=== PATIENT | male | born 1970 | race Two or more races ===

== ENCOUNTER 2023-08-15 18:16 | Inpatient (IN) | payer OTHER, SELFPAY ==
[2023-08-15 20:00] VITALS: BP 152/86; PULSE 73; TEMP 36.7; O2SAT 98
[2023-08-15] MEDS: Tamsulosin HCL 0.4 MG CAPSULE PO (20:49)
[2023-08-15] MEDS: traZODone HCL 50 MG TABLET PO (20:50)
--- NOTE | 2023-08-15 22:59 | PC.ADMIT ---
Addendum entered by Elle Coello RN 08/15/23 23:23: pt is belarusian speaking only, supervisor garage was used. Original Note: pt is 53 year old male who came to [facility] ED with SI with plan to slit wrist and shoot self in the head. pt has a past medical history of BPH, inaptient admissions, depression, back pain, fractured spine, and asthma. during admission, pt signed CV, legals and a 3 day. pt reported he has less SI and is concerned about lsoing his job while he is in here. pt reports that he hears voices at night and sees shadows. pt reports after his father he became depressed. pt reports his mother is dying and he is depressed about this. start treatment plan and promote safety.
--- NOTE | 2023-08-15 23:06 | PC.NURSE ---
pt signed a 3 day 08/15/2023. 08/19/23 is when the 3 day is up.
[2023-08-16] MEDS: Acetaminophen 325 MG TABLET 650 MG PO (04:18)
[2023-08-16] MEDS: Omeprazole 20 MG CAPSULE.DR PO (06:03)
[2023-08-16 07:54] LABS: Estimated Average Glucose 114 mg/dL; Hemoglobin A1c % 5.6 % (<6.0)
--- NOTE | 2023-08-16 08:20 | P.HPPS_ITS ---
HPI Date of Service: 08/16/23 Chief Complaint: Major Depressive Disorder with psychotic features Sources of Information: patient interviewed, chart reviewed and crisis/core team assessment reviewed HPI Subjective Notes: Murray Warning (given and shows understanding) and Conditional Voluntary Narrative: Mr. Márquez is a 53 year-old male with hx of MDD who self presented to [facility] ED reporting increased depression in past 2 weeks. 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 He also reports chronic migraines for past 2 years after TBI. He reported black shadows and mumbles. In the ED utox is negative. BAL is negative. On the unit, pt reports feeling increasingly more depressed, hopeless and overwhelmed. He reports has cancer and undergoing tx at this time. 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 However, he reports due to financial constraints he does not have any other option but to continue working. He reports episodes of depression and on and off throughout his life. He reports very poor sleep. Appetite still the same. He denies any plan or intent to harm himself but he does report having thoughts prior to coming to the hospital to cut his wrist, which he has done in the past more than 20 years ago when he was very depressed. In terms of psychosis, he reports seeing shadows and mumbles. He reports this is new but do not suspect is necessary sign of psychotic disorder but related to his depression. Past Psychiatric History: Inpatient: 20 years ago in [place] after suicide attempt- cut his left forearm OP: none Past medication trials: clonazepam Hx of suicide attempts: 20 years ago, cut forearm, reports related also to alcohol use which he denies using for 15 years. Medical Evaluation Reviewed: Yes CBC unremarkable CMP: unremarkable PMFSH Family History: denies Social History: Pt reports from first with whom he has 3 children- 2 sons and one daughter who are in [place]. He reports growing up in [place]. Completed HS. 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 He is currently and has 3 step children Substance History: alcohol hx- reports not using in more than 15 years. He denies opioid, cocaine use. Trauma History: of father Diagnostics Vital Signs (24Hr): Vital Signs - 24 hr 08/15/23 20:00 Temperature 98.1 F Pulse Rate 73 Blood Pressure 152/86 H Pulse Oximetry 98 Oxygen Delivery Method Room Air Labs 08/16/23 07:29 Labs: Laboratory Results - last 48 hr 08/16/23 07:29 Estimat Average Glucose 114 Hemoglobin A1c % 5.6 Meds/Allergies Meds Home Medications Medication Instructions Recorded Confirmed Type acetaminophen 650 mg 650 mg PO Q8H 08/15/23 08/15/23 History tablet,extended release albuterol sulfate 90 mcg/actuation 2 puff inhalation Q6H PRN wheezing 08/15/23 08/15/23 History aerosol inhaler (Ventolin HFA) amlodipine 5 mg tablet 5 mg PO DAILY 08/15/23 08/15/23 History budesonide-formoterol HFA 160 2 puff inhalation BID Shortness Of 08/15/23 08/15/23 History mcg-4.5 mcg/actuation aerosol Breath Or Wheezing inhaler (Symbicort) pantoprazole 40 mg tablet,delayed 40 mg PO DAILY 08/15/23 08/15/23 History release tamsulosin 0.4 mg capsule 0.4 mg PO BEDTIME 08/15/23 08/15/23 History Allergies Allergies Allergy/AdvReac Type Severity Reaction Status Date / Time aspirin AdvReac Anaphylaxis Verified 08/15/23 19:23 Penicillins AdvReac Anaphylaxis Verified 08/15/23 19:23 Mental Status Exam Mental Status Exam Narrative: Appearance:casually groomed, fair hygiene, physical discomfort due to migraine Behavior:cooperative Psychomotor: no agitation or retardation noted Speech: clear, normal rate/rhythm/volume, spontaneous TP:linear TC:feeling overwhelmed with stressors Mood: depressed Affect:congruent SI:denies HI: denies VH/AH: none Delusions: no overt delusional content noted or reported Insight/judgment: fair x 2. Memory/cog: alert, oriented x 3. grossly intact to conversational testing. Assessment & Plan Assessment & Plan (1) MDD (major depressive disorder), recurrent severe, without psychosis: Status: Acute Code(s): F33.2 - Major depressive disorder, recurrent severe without psychotic features Plan Mr. Márquez is a 53 year-old male with hx of MDD who self presented to [facility] ED reporting increase depression in context of multiple stressors including fact that has cancer, he is main financial provider for the home and his job worsening his chronic back pain. Utox is negative. He also has migraines since he had TBI 2 years ago. He reports as depression has worsened he is getting more migraines. He states he usually will go to ED for treatment but states he has not gone to neurology or his PCP for chronic management. We discussed risks, benefits and alternative treatment option, we discussed trying nortriptyline that may help with migraine and depression. PLAN 1. Admit to M[facility], CV, 15 minutes checks for safety 2. Start nortriptilyne 20mg po qhs. monitor over sedation, dry mouth. 3.obtain collateral information 4. aftercare planning. pt interested in connecting with OP services. 4. will add sumatriptan for migraine prn. Patient educated on: diagnosis and medication risk/benefits Reason for continued inpatient stay Substantial Risk for: harm to self Statement Statement: I have reviewed the history and physical and performed a pertinent examination on my patient. No changes have occurred unless specified. If the History and Physical was not performed prior to admission, the Hospitalist's service will be consulted for completing the admission physical. Time Spent With Patient Time: Total time managing care of this patient today ____ minutes.
[2023-08-16 08:25] LABS: Alanine Aminotransferase 11 U/L (0-40); Albumin Level 4.3 g/dL (3.5-5.0); Alkaline Phosphatase 64 U/L (39-117); Anion Gap 17 (12-20); Aspartate Amino Transferase 16 U/L (5-37); Bilirubin Direct 0.2 mg/dL (0.0-0.5); Bilirubin Total 0.6 mg/dL (0.0-1.0); Blood Urea Nitrogen 10 mg/dL (9-16); Calcium 9.8 mg/dL (8.4-10.2); Carbon Dioxide 23 mmol/L (22-29); Chloride 104 mmol/L (96-108); Cholesterol 182 mg/dL (<200); Estimated Glomerular Filt Rate > 60; Glucose Fasting 116 mg/dL (60-99); HDL Cholesterol 41 mg/dL (>40); LDL Cholesterol Calculated 117 mg/dL (<100); Potassium 4.4 mmol/L (3.3-5.1); Sodium 140 mmol/L (135-145); Total Protein 7.4 g/dL (6.5-8.0); Triglycerides 123 mg/dL (<150)
[2023-08-16 08:39] LABS: Free T4 (Free Thyroxine) 1.07 ng/dL (0.71-1.85); Thyroid Stimulating Hormone 0.86 uIU/mL (0.32-4.0)
[2023-08-16 08:45] VITALS: BP 116/83; PULSE 85; RESP 18; TEMP 36.2; O2SAT 98
[2023-08-16] MEDS: amLODIPine Besylate 5 MG TABLET PO (08:49)
[2023-08-16] MEDS: Fluticasone/Vilanterol 200/25 BLST.W.DEV 1 PUFF INHALE (08:49)
[2023-08-16] MEDS: Ibuprofen 400 MG TABLET PO (08:49)
[2023-08-16] MEDS: Nicotine 21 MG PATCH.TD24 TRANSDERMA (08:50)
[2023-08-16 08:54] LABS: Folate 9.2 ng/mL (> or = 4.0); Vitamin B12 > 2000 pg/mL (200-900)
--- NOTE | 2023-08-16 11:14 | P.CONHOSP_ITS ---
History of Present Illness Data of Consult Service Date: 08/16/23 Primary Care Provider: Unknown Physician HPI Reason for consult: Admission H&P Pt is a 53-year-old male with a PMH significant for?asthma, migraines, HTN, chronic back pain, and depression who is admitted to [facility] psychiatry unit for increasing depression with SI with plan to cut himself with a knife.. Medical consult for admission H&P. Patient complains that he is currently experiencing a severe migraine that is centered in the around his eyes and the front of his head that also radiates to his neck. Migraine started last night, and patient states Tylenol has done nothing to alleviate his pain. 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 Pain radiates to his right leg which is also chronically numb. Reports being diagnosed with a pinched nerve, herniated discs, and vertebral fractures. States he has had extensive workup outpatient for his lower back pain, including extensive physical therapy and getting an MRI two weeks ago. Pt is unsure exactly where the workup completed, likely [facility] but possibly [facility]. He has yet to schedule his follow up to discuss MRI results. Labs reviewed, grossly unremarkable. Vital signs stable. Review of Systems 2 Review of Systems: Migraine headache Chronic lower back pain Chronic right leg pain and numbness Yes all other systems are reviewed and are negative [facility] Social History Household Members: Family Housing: Apartment Do you presently have visiting nurse or other home services: No Patient Tobacco Use Status: Current everyday Tobacco user Tobacco use type: Cigarette Cigarette Packs Per Day: 1 Cigarettes Per Day: 20.0 Smoked in Last 30 Days: Yes Patient Interested in Nicotine Replacement: Yes (patch and gum) Patient Given Instructions on How to Stop Smoking: Yes Date Education Initiated: 08/15/23 Second Hand Smoke Exposure: No Use of substances other than those prescribed or required for medical reasons: No Currently Displaying Signs/Symptoms of Drug Intoxication Withdrawal: No Have you been hit, kicked, punched, or otherwise hurt by someone within the past year? If so, by whom?: No Do you feel safe in your current relationship?: Yes Is there a partner from a previous relationship who is making you feel unsafe now?: No Are you made to feel afraid or neglected: No Advance Directives: No Advance Directives Information Provided: Yes Do you have thoughts of harming others: None Do you have a plan to hurt others: No Plan Recently lost weight without trying: No How much weight loss: Not applicable Eating poorly because of decreased appetite: No Nutrition screen score: 0 Nutrition Risks: No Nutritional Risk Poor oral hygiene: No Meds Allergies Allergy/AdvReac Type Severity Reaction Status Date / Time aspirin AdvReac Anaphylaxis Verified 08/15/23 19:23 Penicillins AdvReac Anaphylaxis Verified 08/15/23 19:23 Active Medications: Current Medications Acetaminophen (Acetaminophen 325 Mg Tablet) 650 mg PO Q6H PRN PRN Reason: Headache/Pain Mild Scale (1-3) Last Admin: 08/16/23 04:18 Dose: 650 mg Al Hydroxide/Mg Hydroxide (Magnesium Hydrox/Alum Hydrox 30 Ml Oral.Susp) 30 ml PO Q6H PRN PRN Reason: Heartburn/Nausea Albuterol Sulfate (Albuterol Sulfate 90 Mcg 8 Gm Inhaler) 2 puff INHALE RQ6H PRN PRN Reason: Shortness of Breath Amlodipine Besylate (Amlodipine Besylate 5 Mg Tablet) 5 mg PO DAILY [facility]; Protocol Last Admin: 08/16/23 08:49 Dose: 5 mg Fluticasone/Vilanterol (Fluticasone/Vilanterol 200/25 Blst.W.Dev) 1 puff INHALE RDAILY [facility] Last Admin: 08/16/23 08:49 Dose: 1 puff Hydroxyzine HCl (Hydroxyzine Hcl 25 Mg Tablet) 25 mg PO Q6H PRN PRN Reason: Anxiety Ibuprofen (Ibuprofen 400 Mg Tablet) 400 mg PO Q6H PRN PRN Reason: Pain, Moderate(Pain Scale 4-6) Last Admin: 08/16/23 08:49 Dose: 400 mg Magnesium Hydroxide (Milk Of Magnesia 30 Ml Oral.Susp) 30 ml PO DAILY PRN PRN Reason: Constipation Nicotine (Nicotine 21 Mg Patch.Td24) 21 mg TRANSDERMA DAILY [facility] Last Admin: 08/16/23 08:50 Dose: 21 mg Nicotine Polacrilex (Nicotine Polacrilex 2 Mg Gum) 4 mg BUCCAL Q2H PRN PRN Reason: Nicotine Cravings Omeprazole (Omeprazole 20 Mg Capsule.Dr) 20 mg PO DAILY@0630 [facility] Last Admin: 08/16/23 06:03 Dose: 20 mg Tamsulosin HCl (Tamsulosin Hcl 0.4 Mg Capsule) 0.4 mg PO BEDTIME DUANE Last Admin: 08/15/23 20:49 Dose: 0.4 mg Trazodone HCl (Trazodone Hcl 50 Mg Tablet) 50 mg PO BEDTIME MRX1 PRN PRN Reason: Insomnia Last Admin: 08/15/23 20:50 Dose: 50 mg Home Medications Medication Instructions Recorded Confirmed Last Taken Type acetaminophen 650 mg 650 mg PO Q8H 08/15/23 08/15/23 Unknown History tablet,extended release albuterol sulfate 90 mcg/actuation 2 puff inhalation Q6H PRN wheezing 08/15/23 08/15/23 Unknown History aerosol inhaler (Ventolin HFA) amlodipine 5 mg tablet 5 mg PO DAILY 08/15/23 08/15/23 Unknown History budesonide-formoterol HFA 160 2 puff inhalation BID Shortness Of 08/15/23 08/15/23 Unknown History mcg-4.5 mcg/actuation aerosol Breath Or Wheezing inhaler (Symbicort) pantoprazole 40 mg tablet,delayed 40 mg PO DAILY 08/15/23 08/15/23 Unknown History release tamsulosin 0.4 mg capsule 0.4 mg PO BEDTIME 08/15/23 08/15/23 Unknown History Physical Exam 2 Vital Signs and Narrative: Vital Signs: Last Vital Signs Temp 97.2 F 08/16/23 08:45 Pulse 85 08/16/23 08:45 Resp 18 08/16/23 08:45 BP 116/83 08/16/23 08:45 Pulse Ox 98 08/16/23 08:45 O2 Del Method Room Air 08/16/23 08:45 Constitutional: Alert, in no acute distress. Mental Status: Oriented to person, place and time. Eyes: Pupils are equal, round, and reactive to light. Ear, Nose, and Throat: Oropharynx clear, mucous membranes moist. Ears and nose without deformities. Trachea midline. Respiratory: Clear to auscultation bilaterally. No wheezing, rales, or rhonchi. Cardiovascular: S1, S2 regular. No murmurs, rubs, or gallops. Gastrointestinal: Abdomen soft, non-tender, non-distended. Normal bowel sounds. Neurologic: Cranial nerves II-XII are grossly intact bilaterally. Moves all extremities spontaneously. Reduced sensation to light touch of right leg. Skin: No rashes or lesions noted. Musculoskeletal: No cyanosis or clubbing. Extremities: No edema. Psychiatric: Normal mood and affect. Results Labs 08/16/23 07:29 Labs: Laboratory Results - last 24 hr 08/16/23 07:29 Anion Gap 17 Estim Creat Clear Calc TNP Estimated GFR > 60 Fasting Glucose 116 H Estimat Average Glucose 114 Hemoglobin A1c % 5.6 Calcium 9.8 Total Bilirubin 0.6 Direct Bilirubin 0.2 AST 16 ALT 11 Alkaline Phosphatase 64 Total Protein 7.4 Albumin 4.3 Triglycerides 123 Cholesterol 182 LDL Cholesterol, Calc 117 H HDL Cholesterol 41 Vitamin B12 > 2000 H Folate 9.2 TSH 0.86 Free T4 1.07 Assessment and Plan (1) Medical clearance for psychiatric admission: Status: Acute Plan Pt is a 53-year-old male with a PMH significant for?moderate persistent asthma, migraines, HTN, chronic back pain, and depression who is admitted to [facility] psychiatry unit for increasing depression with SI with plan to cut himself with a knife.. Medical consult for admission H&P. Mood disorder Plan as per Psychiatry Migraines Patient currently complaining of severe migraine Will add Fioricet q4hr Chronic back and right leg pain Patient apparently has had extensive outpatient workup with other providers, including MRI 2 weeks ago Continue with current conservative pain management Will need to follow-up outpatient for MRI results and additional treatment/workup/interventions Moderate persistent asthma Not in acute exacerbation HTN Continue amlodipine GERD Continue pantoprazole BPH Continue tamsulosin Thank you for allowing us to participate in the care of this patient. Signing off at this time. Please let us know if there are any acute complaints or questions. Time Spent With Patient Time: Total time managing care of this patient today ____ minutes.
--- NOTE | 2023-08-16 12:47 | PC.NURSE ---
pt signed 3day notice, up on 08/20. CHARLIE Acosta, UR notified.
[2023-08-16] MEDS: Butalb/Acetamin/Caff 50/325/40 TABLET 1 TAB PO (13:50)
[2023-08-16 16:26] VITALS: BP 128/64; PULSE 77; TEMP 36.2; O2SAT 97
[2023-08-16] MEDS: Nortriptyline HCl 10 MG CAPSULE 20 MG PO (20:11)
[2023-08-16] MEDS: Tamsulosin HCL 0.4 MG CAPSULE PO (20:12)
[2023-08-16] MEDS: traZODone HCL 50 MG TABLET PO ×2 (20:12→22:33)
[2023-08-16] MEDS: hydrOXYzine HCL 25 MG TABLET PO (22:33)
[2023-08-17] MEDS: Omeprazole 20 MG CAPSULE.DR PO (06:00)
[2023-08-17 08:20] VITALS: BP 130/76; PULSE 88; RESP 18; TEMP 36.3; O2SAT 99
[2023-08-17] MEDS: amLODIPine Besylate 5 MG TABLET PO (09:31)
[2023-08-17] MEDS: Nicotine 21 MG PATCH.TD24 TRANSDERMA (09:31)
[2023-08-17] MEDS: Ibuprofen 400 MG TABLET PO ×2 (09:31→16:28)
[2023-08-17] MEDS: Acetaminophen 325 MG TABLET 650 MG PO ×2 (09:31→16:28)
[2023-08-17] MEDS: Cyclobenzaprine HCl 5 MG TABLET PO ×2 (13:15→20:07)
[2023-08-17 18:00] VITALS: BP 128/63; PULSE 70; TEMP 36.2; O2SAT 99
--- NOTE | 2023-08-17 19:20 | HO.PSYCHPN ---
Subjective Subjective Date of Service: 08/17/23 Reason For Visit: Major Depressive Disorder with psychotic features Subjective Notes: Conditional Voluntary and 3 Day Interim History: Pt reports feeling much better. He reports no migraine today. He denies SI/HI. He reports feeling less overwhelmed. He does want to continue op psych tx. He reports sleeping well. No VH/AH. Review of Systems Review of Systems Migraine headache Chronic lower back pain Chronic right leg pain and numbness Yes all other systems are reviewed and are negative Mental Status Exam Mental Status Exam Narrative: Appearance:casually groomed, fair hygiene, physical discomfort due to migraine Behavior:cooperative Psychomotor: no agitation or retardation noted Speech: clear, normal rate/rhythm/volume, spontaneous TP:linear TC:feeling overwhelmed with stressors Mood: depressed Affect:congruent SI:denies HI: denies VH/AH: none Delusions: no overt delusional content noted or reported Insight/judgment: fair x 2. Memory/cog: alert, oriented x 3. grossly intact to conversational testing. Diagnostics Vital Signs (24Hr): Vital Signs - 24 hr 08/17/23 08:20 Temperature 97.4 F Pulse Rate 88 Respiratory Rate 18 Blood Pressure 130/76 Pulse Oximetry 99 Oxygen Delivery Method Room Air Labs 08/16/23 07:29 Labs: Laboratory Results - last 48 hr 08/16/23 07:29 Sodium 140 Potassium 4.4 Chloride 104 Carbon Dioxide 23 Anion Gap 17 BUN 10 Creatinine 0.86 Estim Creat Clear Calc TNP Estimated GFR > 60 Fasting Glucose 116 H Estimat Average Glucose 114 Hemoglobin A1c % 5.6 Calcium 9.8 Total Bilirubin 0.6 Direct Bilirubin 0.2 AST 16 ALT 11 Alkaline Phosphatase 64 Total Protein 7.4 Albumin 4.3 Triglycerides 123 Cholesterol 182 LDL Cholesterol, Calc 117 H HDL Cholesterol 41 Vitamin B12 > 2000 H Folate 9.2 TSH 0.86 Free T4 1.07 Medications Medications Current Medications Acetaminophen (Acetaminophen 325 Mg Tablet) 650 mg PO Q6H PRN PRN Reason: Headache/Pain Mild Scale (1-3) Last Admin: 08/17/23 16:28 Dose: 650 mg Acetaminophen/Butalbital/Caffeine (Butalb/Acetamin/Caff 50/325/40 Tablet) 1 tab PO Q4H PRN PRN Reason: Migraine Headache Last Admin: 08/16/23 13:50 Dose: 1 tab Al Hydroxide/Mg Hydroxide (Magnesium Hydrox/Alum Hydrox 30 Ml Oral.Susp) 30 ml PO Q6H PRN PRN Reason: Heartburn/Nausea Albuterol Sulfate (Albuterol Sulfate 90 Mcg 8 Gm Inhaler) 2 puff INHALE RQ6H PRN PRN Reason: Shortness of Breath Amlodipine Besylate (Amlodipine Besylate 5 Mg Tablet) 5 mg PO DAILY [facility]; Protocol Last Admin: 08/17/23 09:31 Dose: 5 mg Cyclobenzaprine HCl (Cyclobenzaprine Hcl 5 Mg Tablet) 5 mg PO TID PRN PRN Reason: Muscle Spasm Last Admin: 08/17/23 13:15 Dose: 5 mg Fluticasone/Vilanterol (Fluticasone/Vilanterol 200/25 Blst.W.Dev) 1 puff INHALE RDAILY [facility] Last Admin: 08/17/23 16:20 Dose: Not Given Hydroxyzine HCl (Hydroxyzine Hcl 25 Mg Tablet) 25 mg PO Q6H PRN PRN Reason: Anxiety Last Admin: 08/16/23 22:33 Dose: 25 mg Ibuprofen (Ibuprofen 400 Mg Tablet) 400 mg PO Q6H PRN PRN Reason: Pain, Moderate(Pain Scale 4-6) Last Admin: 08/17/23 16:28 Dose: 400 mg Magnesium Hydroxide (Milk Of Magnesia 30 Ml Oral.Susp) 30 ml PO DAILY PRN PRN Reason: Constipation Nicotine (Nicotine 21 Mg Patch.Td24) 21 mg TRANSDERMA DAILY [facility] Last Admin: 08/17/23 09:31 Dose: 21 mg Nicotine Polacrilex (Nicotine Polacrilex 2 Mg Gum) 4 mg BUCCAL Q2H PRN PRN Reason: Nicotine Cravings Nortriptyline HCl (Nortriptyline Hcl 10 Mg Capsule) 20 mg PO BEDTIME [facility] Last Admin: 08/16/23 20:11 Dose: 20 mg Omeprazole (Omeprazole 20 Mg Capsule.Dr) 20 mg PO DAILY@0630 [facility] Last Admin: 08/17/23 06:00 Dose: 20 mg Sumatriptan Succinate (Sumatriptan Succinate 100 Mg Tablet) 100 mg PO DAILY MRX1 PRN PRN Reason: Migraine Headache Tamsulosin HCl (Tamsulosin Hcl 0.4 Mg Capsule) 0.4 mg PO BEDTIME [facility] Last Admin: 08/16/23 20:12 Dose: 0.4 mg Trazodone HCl (Trazodone Hcl 50 Mg Tablet) 50 mg PO BEDTIME MRX1 PRN PRN Reason: Insomnia Last Admin: 08/16/23 22:33 Dose: 50 mg Allergies Allergies Allergy/AdvReac Type Severity Reaction Status Date / Time aspirin AdvReac Anaphylaxis Verified 08/15/23 19:23 Penicillins AdvReac Anaphylaxis Verified 08/15/23 19:23 Assessment & Plan Assessment & Plan (1) MDD (major depressive disorder), recurrent severe, without psychosis: Status: Acute Code(s): F33.2 - Major depressive disorder, recurrent severe without psychotic features Plan Pt is a 53-year-old male with a PMH significant for?moderate persistent asthma, migraines, HTN, chronic back pain, and depression who is admitted to [facility] psychiatry unit for increasing depression with SI with plan to cut himself with a knife. 08/17 continue tx. Reason for continued inpatient stay Substantial Risk for: harm to self Time Spent With Patient Time: Total time managing care of this patient today ____ minutes.
[2023-08-17] MEDS: Tamsulosin HCL 0.4 MG CAPSULE PO (20:07)
[2023-08-17] MEDS: traZODone HCL 50 MG TABLET PO (20:07)
[2023-08-17] MEDS: Nortriptyline HCl 10 MG CAPSULE 20 MG PO (20:07)
[2023-08-18] MEDS: Omeprazole 20 MG CAPSULE.DR PO (05:44)
[2023-08-18 07:55] VITALS: BP 130/79; PULSE 75; RESP 18; TEMP 36; O2SAT 99
[2023-08-18] MEDS: Nicotine 21 MG PATCH.TD24 TRANSDERMA (08:43)
[2023-08-18] MEDS: amLODIPine Besylate 5 MG TABLET PO (08:43)
[2023-08-18] MEDS: Fluticasone/Vilanterol 200/25 BLST.W.DEV 1 PUFF INHALE (08:44)
[2023-08-18] MEDS: Cyclobenzaprine HCl 5 MG TABLET PO ×2 (11:09→16:52)
[2023-08-18] MEDS: Ibuprofen 400 MG TABLET PO ×2 (11:09→23:23)
[2023-08-18] MEDS: Acetaminophen 325 MG TABLET 650 MG PO (16:53)
[2023-08-18] MEDS: Lidocaine 4 % Patch ADH..PATCH 2 PATCH TRANSDERMA (17:14)
[2023-08-18 18:00] VITALS: BP 120/71; PULSE 78; RESP 18; TEMP 36.3; O2SAT 98
--- NOTE | 2023-08-18 18:22 | PC.NURSE ---
Patient [id number] to have back pain, 7/10 on 0-10 scale with [address] Michelle ordered Lidocaine 4% patches (2) for his back to be applied daily. Patient had first application this afternoon.
--- NOTE | 2023-08-18 18:24 | HO.PSYCHPN ---
Subjective Subjective Date of Service: 08/18/23 Reason For Visit: Major Depressive Disorder with psychotic features Subjective Notes: Conditional Voluntary and 3 Day Healthcare Proxy: No Guardianship: No Medical Problems Affecting Mental Status: No Interim History: Three day notice to 08/20. Pt reports feeling improved. Denies SI,HI, VH/AH. No evidence of psychosis. Asks to discharge 08/19 as he is wanting to return to family, work and routine. Reports feeling improved and reports the admission has helped him. Identifies milieu support as being helpful. States the first medication doses helped his migraine headache significantly and he would like to continue this regime. Medication Compliance: Yes Side effects from medications: No Attending Groups: Yes Review of Systems Acute medical concerns: No Medical Review of Systems: unchanged Mental Status Exam Mental Status Exam Patient Appearance: Appropriate Patient Orientation: Person, Place, Time and Situation Level of Consciousness: Alert Patient Behavior: Appropriate, Talkative, Cooperative and Good Eye Contact Mood Description: Appropriate Affect Description: Appropriate Patient Cognition Impaired: No Ability to Follow Directions: Good Speech Pattern: Spontaneous Speech Memory Description: Intact Hallucinations: None Delusions: Not Present Thought Process: Intact Thought Content: positive for Intact Judgement: Good Diagnostics Vital Signs (24Hr): Vital Signs - 24 hr 08/18/23 07:55 Temperature 96.8 F Pulse Rate 75 Respiratory Rate 18 Blood Pressure 130/79 Pulse Oximetry 99 Oxygen Delivery Method Room Air Labs 08/16/23 07:29 Medications Medications Current Medications Acetaminophen (Acetaminophen 325 Mg Tablet) 650 mg PO Q6H PRN PRN Reason: Headache/Pain Mild Scale (1-3) Last Admin: 08/18/23 16:53 Dose: 650 mg Al Hydroxide/Mg Hydroxide (Magnesium Hydrox/Alum Hydrox 30 Ml Oral.Susp) 30 ml PO Q6H PRN PRN Reason: Heartburn/Nausea Albuterol Sulfate (Albuterol Sulfate 90 Mcg 8 Gm Inhaler) 2 puff INHALE RQ6H PRN PRN Reason: Shortness of Breath Amlodipine Besylate (Amlodipine Besylate 5 Mg Tablet) 5 mg PO DAILY DUANE; Protocol Last Admin: 08/18/23 08:43 Dose: 5 mg Cyclobenzaprine HCl (Cyclobenzaprine Hcl 5 Mg Tablet) 5 mg PO TID PRN PRN Reason: Muscle Spasm Last Admin: 08/18/23 16:52 Dose: 5 mg Fluticasone/Vilanterol (Fluticasone/Vilanterol 200/25 Blst.W.Dev) 1 puff INHALE RDAILY FORMERLY [facility], [facility]1983 Last Admin: 08/18/23 08:44 Dose: 1 puff Hydroxyzine HCl (Hydroxyzine Hcl 25 Mg Tablet) 25 mg PO Q6H PRN PRN Reason: Anxiety Last Admin: 08/16/23 22:33 Dose: 25 mg Ibuprofen (Ibuprofen 400 Mg Tablet) 400 mg PO Q6H PRN PRN Reason: Pain, Moderate(Pain Scale 4-6) Last Admin: 08/18/23 11:09 Dose: 400 mg Lidocaine (Lidocaine 4 % Patch Adh..Patch) 2 patch TRANSDERMA DAILY FOR[facility]LY [facility], [facility]1983; Protocol Magnesium Hydroxide (Milk Of Magnesia 30 Ml Oral.Susp) 30 ml PO DAILY PRN PRN Reason: Constipation Nicotine (Nicotine 21 Mg Patch.Td24) 21 mg TRANSDERMA DAILY FOR[facility]LY [facility], [facility]1983 Last Admin: 08/18/23 08:43 Dose: 21 mg Nicotine Polacrilex (Nicotine Polacrilex 2 Mg Gum) 4 mg BUCCAL Q2H PRN PRN Reason: Nicotine Cravings Nortriptyline HCl (Nortriptyline Hcl 10 Mg Capsule) 20 mg PO BEDTIME FOR[facility], [facility] Last Admin: 08/17/23 20:07 Dose: 20 mg Omeprazole (Omeprazole 20 Mg Capsule.Dr) 20 mg PO DAILY@0630 FOR[facility], [facility]1983 Last Admin: 08/18/23 05:44 Dose: 20 mg Sumatriptan Succinate (Sumatriptan Succinate 100 Mg Tablet) 100 mg PO DAILY MRX1 PRN PRN Reason: Migraine Headache Tamsulosin HCl (Tamsulosin Hcl 0.4 Mg Capsule) 0.4 mg PO BEDTIME [facility], [facility] Last Admin: 08/17/23 20:07 Dose: 0.4 mg Trazodone HCl (Trazodone Hcl 50 Mg Tablet) 50 mg PO BEDTIME MRX1 PRN PRN Reason: Insomnia Last Admin: 08/17/23 20:07 Dose: 50 mg Allergies Allergies Allergy/AdvReac Type Severity Reaction Status Date / Time aspirin AdvReac Anaphylaxis Verified 08/15/23 19:23 Penicillins AdvReac Anaphylaxis Verified 08/15/23 19:23 Assessment & Plan Assessment & Plan (1) MDD (major depressive disorder), recurrent severe, without psychosis: Status: Acute Code(s): F33.2 - Major depressive disorder, recurrent severe without psychotic features Plan Pt is a 53-year-old male with a PMH significant for?moderate persistent asthma, migraines, HTN, chronic back pain, and depression who is admitted to [facility] psychiatry unit for increasing depression with SI with plan to cut himself with a knife. 08/17 continue tx. 08/18/23 Three day notice to 08/20. Pt feeling improved and requests discharge 08/19 to return to work and family. Will discharge 08/19. Patient educated on: medication risk/benefits, therapeutic strategies and medical condition Informed Consent: understands Reason for continued inpatient stay Substantial Risk for: harm to self, inability to function and rapid decompensation Time Spent With Patient Time: Total time managing care of this patient today ____ minutes.
[2023-08-18] MEDS: Nortriptyline HCl 10 MG CAPSULE 20 MG PO (20:51)
[2023-08-18] MEDS: Tamsulosin HCL 0.4 MG CAPSULE PO (20:52)
[2023-08-18] MEDS: traZODone HCL 50 MG TABLET PO (23:23)
[2023-08-19] MEDS: Omeprazole 20 MG CAPSULE.DR PO (06:08)
[2023-08-19] MEDS: SUMAtriptan succinate 100 MG TABLET PO (06:08)
[2023-08-19] MEDS: Cyclobenzaprine HCl 5 MG TABLET PO (06:08)
[2023-08-19 07:45] VITALS: BP 122/68; PULSE 68; RESP 18; TEMP 36.4; O2SAT 99
[2023-08-19] MEDS: Fluticasone/Vilanterol 200/25 BLST.W.DEV 1 PUFF INHALE (08:22)
[2023-08-19] MEDS: amLODIPine Besylate 5 MG TABLET PO (08:22)
[2023-08-19] MEDS: Nicotine 21 MG PATCH.TD24 TRANSDERMA (08:23)
--- NOTE | 2023-08-19 10:08 | P.DS_ITS ---
DS: Providers Provider Date of Service: 08/19/23 Date of admission: 08/15/23 18:16 Date of discharge: 08/19/23 Primary care physician: Unknown Physician Admitting clinician: Karla Peterson Attending physician on admission: Tamir Rios Consults: 08/15/23 19:08 Consult to Hospitalist Routine Comment: Consulting Provider: Hospitalist Reason For Exam: OSH admission Attending physician on discharge: Tamir Rios Discharging clinician: Ny Agee DS: Diagnosis Discharge Diagnosis (1) MDD (major depressive disorder), recurrent severe, without psychosis: Status: Acute DS: Medications Discharge Medications Home Medications: Previous Rx's Medication Instructions Recorded albuterol sulfate 90 mcg/actuation 2 puff inhalation Q6H PRN wheezing 08/19/23 aerosol inhaler (Ventolin HFA) #1 inhaler amlodipine 5 mg tablet 5 mg PO DAILY #30 tabs 08/19/23 budesonide-formoterol HFA 160 2 puff inhalation BID Shortness Of 08/19/23 mcg-4.5 mcg/actuation aerosol Breath Or Wheezing #1 inhaler inhaler (Symbicort) lidocaine 4 % topical patch 2 patch transdermal DAILY #60 ea 08/19/23 (Lidocaine Pain Relief) nicotine (polacrilex) 2 mg gum 4 mg buccal Q2H PRN Nicotine 08/19/23 Cravings #60 ea nicotine 21 mg/24 hr daily 21 mg transdermal DAILY #30 ea 08/19/23 transdermal patch nortriptyline 10 mg capsule 20 mg (2 x 10 mg) PO BEDTIME #15 08/19/23 caps pantoprazole 40 mg tablet,delayed 40 mg PO DAILY #30 tabs 08/19/23 release sumatriptan succinate 100 mg tablet 100 mg PO DAILY MRX1 PRN Migraine 08/19/23 Headache #15 tabs tamsulosin 0.4 mg capsule 0.4 mg PO BEDTIME #30 caps 08/19/23 trazodone 50 mg tablet 50 mg PO BEDTIME MRX1 PRN Insomnia 08/19/23 #15 tabs Mental Status Exam Mental Status Exam Patient Appearance: Appropriate Patient Orientation: Person, Place, Time and Situation Level of Consciousness: Alert Patient Behavior: Appropriate, Talkative, Cooperative and Good Eye Contact Mood Description: Appropriate Affect Description: Appropriate Patient Cognition Impaired: No Ability to Follow Directions: Good Speech Pattern: Spontaneous Speech Memory Description: Intact Hallucinations: None Delusions: Not Present Thought Process: Intact Thought Content: positive for Intact Judgement: Good Data Data Completed and Pending Completed studies during hospitalization [Text1]: 08/16/23 07:29 Sodium 140 Potassium 4.4 Chloride 104 Carbon Dioxide 23 Anion Gap 17 BUN 10 Creatinine 0.86 Estim Creat Clear Calc TNP Estimated GFR > 60 Fasting Glucose 116 H Estimat Average Glucose 114 Hemoglobin A1c % 5.6 Calcium 9.8 Total Bilirubin 0.6 Direct Bilirubin 0.2 AST 16 ALT 11 Alkaline Phosphatase 64 Total Protein 7.4 Albumin 4.3 Triglycerides 123 Cholesterol 182 LDL Cholesterol, Calc 117 H HDL Cholesterol 41 Vitamin B12 > 2000 H Folate 9.2 TSH 0.86 Free T4 1.07 DS: Summary Hospital Course Hospital Course: Admission to adult psychiatry for exacerbation of symptoms of depression with current stressors including undergoing treatment for breast cancer, financial stress and management of chronic back pain and chronic migraine. Nortriptyline and Sumatriptan prn were initiated with positive result. Pt utilized the milieu for support and to strengthen coping skills. He filed a three day notice and left a day early to return to family and his work, feeling improved. Time spent discussing smoking cessation with patient: 3 to 10 minutes Status at Discharge Functional status at discharge: independent ambulation Overall status at discharge: patient is progressing back to baseline Time Spent with Patient Time attestation: Total time managing care of this patient today ____ minutes. Time spent: Greater than 30 minutes Discharge Plan Discharge Anticipated Discharge Date/Time: 08/19/23 12:24 Patient Disposition: Home, Self-Care Discharge Diagnosis: Major Depression Referrals: [facility] [Other] - 10/10/23 9:00 am (IN OFFICE) Therapy Intake: Sukhdeep Wesley ([facility]) [Other] - 08/22/23 2:00 pm (Appointment is in person at the office in [place]. Please arrive 15 minutes early to complete paperwork) Psych Prescriber: Jael Hernández [Other] - 09/18/23 11:00 am (Telehealth- Dr. Hernández will call your phone at the appointment time) Psych Prescriber: Jael Hernández ([facility]) [Other] - 10/20/23 12:00 pm (Telehealth ) Discharge Medications: New trazodone 50 mg Tablet 50 mg PO BEDTIME MRX1 PRN (Reason: Insomnia) Qty: 15 0RF nicotine (polacrilex) 2 mg Gum 4 mg buccal Q2H PRN (Reason: Nicotine Cravings) Qty: 60 0RF sumatriptan succinate 100 mg Tablet 100 mg PO DAILY MRX1 PRN (Reason: Migraine Headache) Qty: 15 1RF nortriptyline 10 mg Capsule 20 mg PO BEDTIME Qty: 15 1RF nicotine 21 mg/24 hr Patch 24 Hour 21 mg transdermal DAILY Qty: 30 0RF lidocaine [Lidocaine Pain Relief] 4 % Adhesive Patch,Medicated 2 patch transdermal DAILY Qty: 60 0RF Protocol: Apply to: Apply to: back Continued amlodipine 5 mg tablet 5 mg PO DAILY Qty: 30 0RF tamsulosin 0.4 mg Capsule 0.4 mg PO BEDTIME Qty: 30 0RF pantoprazole 40 mg Tablet,Delayed Release (Dr/Ec) 40 mg PO DAILY Qty: 30 0RF albuterol sulfate [Ventolin HFA] 90 mcg/actuation HFA aerosol inhaler 2 puff inhalation Q6H PRN (Reason: wheezing) Qty: 1 0RF budesonide-formoterol [Symbicort] 160-4.5 mcg/actuation HFA aerosol inhaler 2 puff inhalation BID Qty: 1 0RF Discontinued acetaminophen 650 mg tablet extended release 650 mg PO Q8H Discharge Orders: Discharge Order (Routine); Ordered 08/19/23 Ordered By: Ny Agee Diet: Advance to usual diet Activity on Discharge: As tolerated Stand Alone Forms: Patient Portal Discharge page, Community Support Care Plan Goals: Mood stabilization Behavioral stabilization Health Concerns: Mood stabilization Behavioral stabilization Plan of Treatment: Attend scheduled appointments Take medications as directed Assessment: Pt interviewed prior to discharge and found to be fully oriented and without SI/HI. Pt has insight and demonstrates good judgment in terms of wanting to pursue treatment. Pt is not in imminent risk of harm to self or others and has a safety plan that includes presenting to the closest ER or calling 911 if feeling unsafe. Pt has been observed closely by nursing and unit staff throughout admission. Pt has not engaged in any behaviors that suggest dangerousness to self or others and has demonstrated appropriate behaviors and impulse control. Discharge Date/Time: 08/19/23 11:40
== END 2023-08-19 11:40 | disposition home or self-care (01) | DRG 751 ==
PROVIDERS: Psychiatry & Neurology Psychiatry; Admitting Provider Psychiatry & Neurology Psychiatry; Visit Provider Clinical Nurse Specialist Psychiatric/Mental Health, Adult
DX: F33.2 Major depressive disorder, recurrent severe without psychotic features (principal); R45.851 Suicidal ideations; G43.909 Migraine, unspecified, not intractable, without status migrainosus; I10 Essential (primary) hypertension; M54.9 Dorsalgia, unspecified; G89.29 Other chronic pain; N40.0 Benign prostatic hyperplasia without lower urinary tract symptoms; J45.40 Moderate persistent asthma, uncomplicated; Z87.820 Personal history of traumatic brain injury; Z79.899 Other long term (current) drug therapy
CPT/HCPCS: 36415; 80053; 80061; 80076; 82607; 82746; 83036; 84439; 84443

== ENCOUNTER → 2023-08-15 18:16 | Outpatient (BNV) | payer OTHER, SELFPAY | PROVIDERS: Admitting Provider Psychiatry & Neurology Psychiatry; Visit Provider Student in an Organized Health Care Education/Training Program | DX: G43.019 Migraine without aura, intractable, without status migrainosus (principal); M54.59 Other low back pain | CPT/HCPCS: 99222 ==

== ENCOUNTER → 2023-08-15 18:16 | Outpatient (BNV) | payer OTHER, SELFPAY | PROVIDERS: Admitting Provider Psychiatry & Neurology Psychiatry; Visit Provider Social Worker | DX: F33.2 Major depressive disorder, recurrent severe without psychotic features (principal) | CPT/HCPCS: 99231; 99232 ==

== ENCOUNTER 2024-11-15 11:08 | Outpatient (REF) | payer OTHER, SELFPAY ==
--- NOTE | ~2024-11-15 | XR_ITS ---
EXAMINATION: XR LUMBAR SPINE CLINICAL INFORMATION: Dorsalgia, unspecified M54.9. COMPARISON: MR Lumbar spine without contrast 07/31/2022 TECHNIQUE: 4 views of the lumbar spine. FINDINGS: Submitted for interpretation on November 23, 2024. Multilevel marginal osteophyte formation and syndesmophyte formation, lower thoracic and lumbar spine. Multilevel endplate sclerosis and decreased intervertebral disc height, lumbar spine. Mild wedge-shaped compression deformity representing 20% volume loss in the vertebral bodies likely old. Grade 1 retrolisthesis, L2-3 without motion during flexion and/or extension position. Vascular calcifications. XR/XR lumbar spine 4V min IMPRESSION: Multilevel thoracolumbar spondylosis with a grade 1 retrolisthesis L2-3. No acute fracture. No instability. Electronically signed by: Noman Abraham MD 11/23/2024 08:31 AM [facility]
== END 2024-11-15 11:09 | disposition home or self-care (01) ==
LOC: HO.HOSX 11:08
PROVIDERS: PCP Internal Medicine; Visit Provider Physician Assistant
DX: M54.9 Dorsalgia, unspecified (principal); M54.16 Radiculopathy, lumbar region; G89.29 Other chronic pain
CPT/HCPCS: 72110; 99202

== ENCOUNTER 2024-11-15 11:08 | Outpatient (AMB) | payer OTHER, SELFPAY ==
[2024-11-15 11:25] VITALS: BMI 33.2
--- NOTE | 2024-11-15 11:25 | A.SPINEOV_ITS ---
Vital Signs 11/15/24 11:25 Height 5 ft 9 in Weight 225 lb BMI 33.2 Intake Visit Reasons: disc disorders/lumbar radiculopathy Intake Note: Mr. Moe Márquez is here today c/o low back pain that prevents from walking far distances. Set Up Worker Required: Yes Set Up Worker Name: Tablet Allergies aspirin Adverse Reaction (Verified 11/15/24 11:26) Anaphylaxis Penicillins Adverse Reaction (Verified 11/15/24 11:26) Anaphylaxis Physical Exam Vital Signs: BMI result Body Mass Index 33.2 Assessment & Plan Assessment & Plan (1) Back pain: Code(s): M54.9 - Dorsalgia, unspecified Category: Medical Plan Dear Dr Samuel, Thank you for referring Mr Rosa to our office today. He is a very nice 54-year-old gentleman, recovering alcoholic presents with a multiyear history of low back pain. This visit was done with the help of deaf interpreter [id number]. He reports that a long time ago in [place] he had a fall and had had back pain ever since. It was initially just something that was manageable and not really all that bothersome but over the years it has gotten significantly worse. He believes at that time he was told he may have had a fracture in his back but he can not exactly recall what they said. Nonetheless, he has continued to just try to deal with the pain through the years. He ultimately ended up your office in has undergone extensive conservative management including physical therapy, chiropractic as well as cortisone injections. He has taken Motrin, Tylenol, m uscle relaxers all without much success. It sounds like he had a number of injections that never really lasted all that long. He is frustrated with his quality of life. He has pain from the moment he gets up in the morning until he goes to bed. Generally he can sleep okay. The pain is aggravated with standing and activity. It is located over the center of the lumbar spine and will occasionally radiate down to his legs, right greater than left giving him sensations of cold feet and numb legs. His legs can swell from time to time as well. He had an MRI done at [facility] showing degenerative disc disease at L4-5 and L5-S1 and you sent today to see us for an evaluation. PMH: He tells me he has some kind of asthma or pulmonary problem that he takes an inhaler occasionally. He will use it 2 to 3 times a day. He was a heavy smoker for many years but recently quit in his now just using a patch. He may have a history of hypertension, he can not recall the name of a medication he is on that is supposed to help him urinate more, possibly a diuretic. He also takes a medication for depression twice a day. He could not remember the name of that either. He takes pantoprazole daily to help with GERD. He denies any heart attacks, strokes, liver disease related to his alcohol, hepatitis, major abdominal surgery, blood clots, bleeding or cancer. He has never had surgery in his life. Social hx: He still smokes 1 cigarette a day but for all intents and purposes has quit smoking and is using the nicotine patch. He has been off alcohol x1 year. He was a heavy drinker for a long time. He does not use any recreational drugs. Medications: Take some 1 medication for depression, nortriptyline as listed in his chart so that could be it but he was not able to confirm. He takes an inhaler 2 to 3 times a day for his asthma, he takes pantoprazole for GERD any take some kind of diuretic to help him urinate. Flomax is listed in his chart so that could be the 1 that he is talking about but he was not able to confirm that this was indeed the medication. Allergies: Aspirin and penicillin Physical exam: Awake alert oriented no acute distress, visit done with the help of an deaf interpreter, patient was able to get up on examining table, slow to get up out of his chair, strength and reflexes normal in the lower extremities. Imaging review: There is a lumbar MRI done the [facility] showing transitional anatomy and what looks like moderate disc degeneration at L4-5 and L5-S1 with Modic endplate changes at both levels. I do not see any significant central canal stenosis. Impression: 54-year-old male presents for evaluation of chronic centralized lower lumbar back pain that is aggravated with standing, walking and activity. He does have component of leg pain, right greater than left which radiates down into his calves but the back pain is the real reason he is here today. He has been through extensive conservative treatment without much success. He does have degenerative discs at L4-5 and L5-S1. I explained to him that these could represent the source of his pain, but also they could just be normal age-related findings. We talked about the fact that the typical surgery to treat this would involve spinal fusion surgery. We did briefly discuss what that would mean as well as recovery. I told him I would like to review all his imaging with Dr. Santos as well as get a set of standing flexion-extension x-rays then call him back to see if Dr. Santos thinks he would be a good surgical candidate. At that time we can discuss the approach and I will bring him back in the office and go over the surgery again if he is a candidate. Thank you for allowing us to care for your patient. The total time spent with this visit with this patient was 45 minutes reviewing history, physical exam, lumbar imaging review, and implementation of treatment plan or further diagnostic testing Roger Santos MD,PhD [facility] Orders: Orders XR lumbar spine 4V min Today M54.9 - Dorsalgia, unspecified Coding Level of Care Code New Pt Level 4 (98106) Diagnoses Back pain M54.9
== END 2024-11-15 12:06 | disposition home or self-care (01) ==
PROVIDERS: PCP Internal Medicine; Visit Provider Physician Assistant
DX: M54.9 Dorsalgia, unspecified (principal)
CPT/HCPCS: 99204

== ENCOUNTER 2024-12-03 13:43 | Outpatient (AMB) | payer OTHER, SELFPAY ==
--- NOTE | 2024-12-03 15:07 | HO.SPINEOV ---
Intake Visit Reasons: discuss surgery Intake Note: Mr. Moe Márquez is here today to Discuss Surgical options. Chief Petroleum Engineer Required: Yes Chief Petroleum Engineer Name: Tablet Allergies aspirin Adverse Reaction (Verified 12/03/24 15:08) Anaphylaxis Penicillins Adverse Reaction (Verified 12/03/24 15:08) Anaphylaxis Assessment & Plan Assessment & Plan (1) Back pain: Code(s): M54.9 - Dorsalgia, unspecified Category: Medical Plan This visit was done with the help of healthcare interpreter [id number]. Mr Moe márquez came back in today to review possible surgical procedure for his severe chronic low back pain. Please refer to my previous note. Dr. Santos reviewed the films from [place] again today and we will offer him an anterior lumbar interbody fusion L4-5, L5-S1. Please note for the surgical procedure that he has transitional anatomy so what looks like the L4-5 disc traditionally has vascular anatomy consistent with L5-S1. They are the only 2 degenerative discs in his back so it should be easy to identify at the time of operation. Because of the chronic unrelenting pain he wishes to proceed. We did discuss again the factor there is no way to know how much improvement he may get after surgery, typically we quote 60-70% chance for improvement. We will have him meet with preoperatively. Pt was given risk and benefits of surgery including but not limited to infection, hematoma , nerve injury,durotomy, weakness,bowel/bladder injury, persistent pain, retrograde ejaculation as well as the option to continue with conservative treatment and patient wishes to proceed with surgery. Pt is aware they should stop their motrin, aspirin 7 days prior to surgery. All questions were answered to the best of our ability. If there is anything about this patients medical history that we have overlooked or concerns you have about us proceeding with surgery we would appreciate any input you can offer. Total amount of time spent in this visit was 20 minutes in discussion of symptoms, lumbar MRI imaging results and subsequent plan of care Roger Santos MD,PhD [facility] Coding Level of Care Code Est Pt Level 3 (32608) Diagnoses Back pain M54.9
== END 2024-12-03 15:51 | disposition home or self-care (01) ==
PROVIDERS: PCP Internal Medicine; Visit Provider Physician Assistant
DX: M54.9 Dorsalgia, unspecified (principal)
CPT/HCPCS: 99213

== ENCOUNTER → 2024-12-03 13:43 | Outpatient (BNVA) | payer OTHER, SELFPAY | PROVIDERS: PCP Internal Medicine; Visit Provider Physician Assistant | DX: M54.9 Dorsalgia, unspecified (principal) | CPT/HCPCS: 99212 ==

== ENCOUNTER → 2025-02-01 11:12 | Outpatient (BNV) | payer OTHER, SELFPAY | PROVIDERS: Admitting Provider Neurological Surgery; Visit Provider Internal Medicine Cardiovascular Disease | DX: R00.1 Bradycardia, unspecified (principal) | CPT/HCPCS: 93010 ==

== ENCOUNTER 2025-02-15 06:08 | Inpatient (IN) | payer OTHER, SELFPAY ==
--- NOTE | 2025-02-01 | ECG_ITS ---
Test Reason : PRE OP Blood Pressure : */* mmHG Vent. Rate : 56 BPM Atrial Rate : 56 BPM P-R Int : 192 ms QRS Dur : 86 ms QT Int : 400 ms P-R-T Axes : 62 51 38 degrees QTcB Int : 386 ms Sinus bradycardia Otherwise normal ECG No previous ECGs available Referred By: Hetal Evans Electronically Signed By: Marvin Garcia
[2025-02-01 10:34] VITALS: BP 138/72; PULSE 69; RESP 16; O2SAT 97; BMI 33.4
[2025-02-01 12:09] LABS: Hematocrit 40.3 % (42.0-52.0); Hemoglobin 13.6 g/dl (14.0-18.0); Mean Corpuscular HGB Conc 33.7 g/dl (31.0-36.0); Mean Corpuscular Hemoglobin 30.5 pg (27.0-33.0); Mean Corpuscular Volume 90.4 fL (80.0-98.0); Platelet Count 192 X10*3/uL (160-400); Red Blood Count 4.46 X10*6/uL (4.60-5.80); Red Cell Distribution Width 11.9 % (11.0-16.0); White Blood Count 8.2 X10*3/uL (4.8-10.8)
[2025-02-01 12:44] LABS: Anion Gap 10 (12-20); Blood Urea Nitrogen 14 mg/dL (9-16); Calcium 9.1 mg/dL (8.4-10.2); Carbon Dioxide 26 mmol/L (22-29); Chloride 109 mmol/L (96-108); Creatinine Clr Calc Pharmacy 126.1; Estimated Glomerular Filt Rate > 60; Glucose Random 93 mg/dL (60-115); Potassium 4.5 mmol/L (3.3-5.1); Sodium 140 mmol/L (135-145)
[2025-02-15] VITALS (9 sets, daily range): BP systolic 118–152; BP diastolic 58–90; PULSE 72–110; RESP 13–18; TEMP 36.4–37.1; O2SAT 93–97; BMI 32.7
--- NOTE | ~2025-02-15 | XR_ITS ---
EXAMINATION: XR ABDOMEN 1 VIEW (KUB) HISTORY: S/P ALIF COMPARISON: There are no prior studies for comparison. FINDINGS: A single portable supine view of the abdomen performed at 10:20 AM is submitted. The bowel gas pattern is unremarkable, without evidence of mechanical obstruction. No abnormal calcifications are identified. There are no abnormal soft tissue masses. There is degenerative disc disease of the spine. Disc prostheses are noted at L4-5 and L5-S1 which are not well evaluated without a lateral view. XR/XR abdomen 1V IMPRESSION: Unremarkable bowel gas pattern. Disc prostheses at L4-5 and L5-S1, not well evaluated without a lateral view. Electronically signed by: Brennan Cortes MD 02/15/2025 10:58 AM EDT
--- NOTE | ~2025-02-15 | FL_ITS ---
EXAMINATION: XR FLUOROSCOPY WITH IMAGES CLINICAL INFORMATION: L4-S1 ALIF COMPARISON: None available. TECHNIQUE: Fluoroscopy provided to: Dr. Santos Fluoroscopy time: 1 minute 67 seconds DAP: 37.675 Gycm2 Images: 5 FINDINGS: 5 intraoperative spot images taken during anterior lumbar instrumented fusion L4-S1. Please refer to the full operative report for details. FL/FL guidance in OR IMPRESSION: Fluoroscopic guidance. Electronically signed by: Regis Cano MD 02/15/2025 12:57 PM EDT
[2025-02-15] MEDS: methocarbamoL 750 MG TABLET PO (06:44)
[2025-02-15] MEDS: Gabapentin 300 MG CAPSULE PO (06:44)
[2025-02-15] MEDS: Lactated Ringers 1,000 ML 100 ML IVCONT (06:44)
[2025-02-15] MEDS: vancomycin HCL 1,500 MG in 0.9 % Sodium Chloride 500 ML 333.33 MG IV (06:45)
--- NOTE | 2025-02-15 06:59 | MHC.SHP ---
Pre-Procedural Eval Section A - 24 Hr Update-Section A only Date of Service: 02/15/25 The patient is an INPATIENT: No Changes since office visit: No Cold of Flu in the past 2 weeks, No New Medical Problems, No Changes in Medication and No Patient answered all questions The patient has been examined within 24 hours of the surgical procedure. The History & Physical has been completed within 30 days and I have reviewed it.: No Section B - Complete if H&P > 30 days Chief Complaint: Other intervertebral disc degeneration, lumbar, Allergies: Allergies Allergy/AdvReac Type Severity Reaction Status Date / Time aspirin AdvReac Anaphylaxis Verified 12/03/24 15:08 Penicillins AdvReac Anaphylaxis Verified 12/03/24 15:08 Review of Systems Sugical H&P ROS: Negative: Constitution, Cardiovascular, Respiratory, Neurological, Psychiatric, Hem-Onc, Allergic/Immunologic, Gastrointestinal, Genitourinary, Musculoskeletal, Integumentary, Endocrine and Eyes/Ears/Nose/Throat Exam Surgical H&P Exam: Normal: HEENT, Normal: Heart, Normal: Lungs, Normal: Extremities, Normal: Abdomen, Normal: Skin and Normal: Neurological (awake, alert,oriented x 3 ) Plan Diagnosis/Plan: Unchanged L4-5, L5-S1 anterior lumbar interbody fusion Time Spent With Patient Time: Total time managing care of this patient today _5___ minutes.
--- NOTE | 2025-02-15 07:30 | HO.ANESPROP2 ---
Documented by User: Hetal Evans NP 02/14/25 10:47 HPI - Anesthesia Eval Consult details Narrative: 55yo M for L4-5,L5-S1 Oblique Lumbar Interbody Fusion, 02/15/25 No recent illness No CP/SOB with minimal activity r/t back pain COPD/Asthma: stable on scheduled inhalers, rare albuterol use GERD: ppi PMFSH Active Problems Active Problems: All Active Problems Lumbar degenerative disc disease (Acute) Back pain (Acute) MDD (major depressive disorder), recurrent severe, without psychosis (Acute) Past Medical History Medical History (Updated 02/01/25 @ 10:26 by Teresa Castillo RN) Hiatal hernia GERD (gastroesophageal reflux disease) Depression Numbness SOB (shortness of breath) Sciatica Migraine Obese HTN (hypertension) COPD (chronic obstructive pulmonary disease) Asthma Family History Family history of problems with anesthesia: No Surgical History Surgical History (Updated 02/01/25 @ 10:26 by Teresa Castillo RN) History of esophagogastroduodenoscopy (EGD) H/O colonoscopy History of Problems with Anesthesia: No Social History Social History Household Members: Family Housing: Apartment Are you a primary medicare contact specialist to a significant other at home: No Do you presently have visiting nurse or other home services: No Patient Tobacco Use Status: Former Tobacco user Tobacco use type: Cigarette Cigarette Packs Per Day: 1 Cigarettes Per Day: 20.0 Second Hand Smoke Exposure: No Use of substances other than those prescribed or required for medical reasons: No Have you been hit, kicked, punched, or otherwise hurt by someone within the past year? If so, by whom?: No Are you DNR?: No Advance Directives: No Advance Directives Information Provided: No Advance Directives on File: No Recently lost weight without trying: Yes Eating poorly because of decreased appetite: No Nutrition Risks: No Nutritional Risk Poor oral hygiene: Yes (missing teeth, front upper crown) service: No Sexual orientation: Straight/Heterosexual Meds Allergies Allergy/AdvReac Type Severity Reaction Status Date / Time aspirin AdvReac Anaphylaxis Verified 12/03/24 15:08 Penicillins AdvReac Anaphylaxis Verified 12/03/24 15:08 Home Medications ?Medication ?Instructions ?Recorded ?Confirmed ?Last Taken ?Type diazepam 2 mg tablet 2 mg PO TID PRN Anxiety 02/01/25 02/01/25 Unknown History nicotine 21 mg/24 hr daily 21 mg transdermal DAILY PRN 02/01/25 02/01/25 Unknown History transdermal patch Withdrawal Symptoms nortriptyline 10 mg capsule 20 mg PO BEDTIME PRN Insomnia 02/01/25 02/01/25 Unknown History risperidone 0.25 mg tablet 0.25 mg PO BID PRN anxiety attack 02/01/25 02/01/25 Unknown History Exam Height,Weight and Vital Signs: Height 5 ft 8 in Weight 99.79 kg Last Vital Signs Pulse 69 02/01/25 10:34 Resp 16 02/01/25 10:34 BP 138/72 02/01/25 10:34 Pulse Ox 97 02/01/25 10:34 O2 Del Method Room Air 02/01/25 10:34 Pertinent Lab Results Pertinent Lab Results: Lab Results 02/01/25 02/01/25 Range/Units 11:40 11:47 WBC 8.2 (4.8-10.8) X10*3/uL RBC 4.46 L (4.60-5.80) X10*6/uL Hgb 13.6 L (14.0-18.0) g/dl Hct 40.3 L (42.0-52.0) % MCV 90.4 (80.0-98.0) fL MCH 30.5 (27.0-33.0) pg MCHC 33.7 (31.0-36.0) g/dl RDW 11.9 (11.0-16.0) % Plt Count 192 (160-400) X10*3/uL MPV 11.0 (9.4-12.4) fL Absolute Nucleated RBC 0.000 (0.0-0.012) X10*3/uL Nucleated RBC % (auto) 0.0 (0.0-0.2) /100WBC Sodium 140 (135-145) mmol/L Potassium 4.5 (3.3-5.1) mmol/L Chloride 109 H (96-108) mmol/L Carbon Dioxide 26 (22-29) mmol/L Anion Gap 10 L (12-20) BUN 14 (9-16) mg/dL Creatinine 0.74 (0.5-1.4) mg/dL Estim Creat Clear Calc 126.1 Estimated GFR > 60 Random Glucose 93 (60-115) mg/dL Calcium 9.1 D (8.4-10.2) mg/dL Blood Type O Positive Antibody Screen NEGATIVE Narrative Narrative: EKG 01/2025 Vent. Rate : 56 BPM Atrial Rate : 56 BPM P-R Int : 192 ms QRS Dur : 86 ms QT Int : 400 ms P-R-T Axes : 62 51 38 degrees QTcB Int : 386 ms Sinus bradycardia Otherwise normal ECG No previous ECGs available Airway Mallampati Class: III TM Dist: >3cm Neck ROM: Full Loose/Missing/Broken Teeth: No (#9 cracked , pt denies loose) Heart: RRR Lungs: CTAB Assessment and Plan Assessment Anesthesia Assessment: Anesthesia Plan Discussed and PAT Visit Final Anesthetic Review Family History of Problems with Anesthesia: No History of Problems with Anesthesia: No Documented by User: Denise Clements DO 02/15/25 07:30 [facility] Past Medical History Medical History (Updated 02/01/25 @ 10:26 by Teresa Castillo RN) Hiatal hernia GERD (gastroesophageal reflux disease) Depression Numbness SOB (shortness of breath) Sciatica Migraine Obese HTN (hypertension) COPD (chronic obstructive pulmonary disease) Asthma Family History Family history of problems with anesthesia: No Surgical History Surgical History (Updated 02/01/25 @ 10:26 by Teresa Castillo RN) History of esophagogastroduodenoscopy (EGD) H/O colonoscopy History of Problems with Anesthesia: No Social History Social History Household Members: Family Housing: Apartment Are you a primary medicare contact specialist to a significant other at home: No Do you presently have visiting nurse or other home services: No Patient Tobacco Use Status: Former Tobacco user Tobacco use type: Cigarette Cigarette Packs Per Day: 1 Cigarettes Per Day: 20.0 Second Hand Smoke Exposure: No Use of substances other than those prescribed or required for medical reasons: No Have you been hit, kicked, punched, or otherwise hurt by someone within the past year? If so, by whom?: No Are you DNR?: No Advance Directives: No Advance Directives Information Provided: No Advance Directives on File: No Recently lost weight without trying: Yes Eating poorly because of decreased appetite: No Nutrition Risks: No Nutritional Risk Poor oral hygiene: Yes (missing teeth, front upper crown) service: No Sexual orientation: Straight/Heterosexual Meds Allergies Allergy/AdvReac Type Severity Reaction Status Date / Time aspirin AdvReac Anaphylaxis Verified 12/03/24 15:08 Penicillins AdvReac Anaphylaxis Verified 12/03/24 15:08 Home Medications ?Medication ?Instructions ?Recorded ?Confirmed ?Last Taken ?Type diazepam 2 mg tablet 2 mg PO TID PRN Anxiety 02/01/25 02/01/25 Unknown History nicotine 21 mg/24 hr daily 21 mg transdermal DAILY PRN 02/01/25 02/01/25 Unknown History transdermal patch Withdrawal Symptoms nortriptyline 10 mg capsule 20 mg PO BEDTIME PRN Insomnia 02/01/25 02/01/25 Unknown History risperidone 0.25 mg tablet 0.25 mg PO BID PRN anxiety attack 02/01/25 02/01/25 Unknown History Exam Exam Date and Time: 02/15/25 0725 Height,Weight and Vital Signs: Height 5 ft 8 in Weight 99.79 kg Last Vital Signs Pulse 69 02/01/25 10:34 Resp 16 02/01/25 10:34 BP 138/72 02/01/25 10:34 Pulse Ox 97 02/01/25 10:34 O2 Del Method Room Air 02/01/25 10:34 Vital Signs Pulse Rate 69 02/01/25 10:34 Respiratory Rate 16 02/01/25 10:34 Blood Pressure 138/72 02/01/25 10:34 Pulse Oximetry 97 02/01/25 10:34 Oxygen Delivery Method Room Air 02/01/25 10:34 Temperature 97.8 F 02/15/25 06:35 Pulse Rate 72 02/15/25 06:35 Respiratory Rate 16 02/15/25 06:35 Blood Pressure 152/87 H 02/15/25 06:35 Pulse Oximetry 97 02/15/25 06:35 Oxygen Delivery Method Room Air 02/15/25 06:35 Airway Mallampati Class: II TM Dist: >3cm Neck ROM: Full Loose/Missing/Broken Teeth: No (#9 cracked, several missing but patient denies loose teeth) Heart: S1S2 Assessment and Plan Assessment Anesthesia Assessment: Anesthesia Plan Discussed and Chart Reviewed Final Anesthetic Review Family History of Problems with Anesthesia: No History of Problems with Anesthesia: No NPO: Yes ASA Class: II Final Preanesthetic Review: No Changes in Pt Med Stat, Meds/Allgs Chart Reviewed, Consent Obtained/Reviewed (language interpreter at bedside) and Anes Risks/Benef Reviewed Patient Risk: Low Procedure Risk: Intermediate Anesthetic Plan Anesthetic Plan: GA and Agree w/ Assess. and Plan Disposition: Standard PACU
--- OUTSIDE RECORDS SUMMARY | 2025-02-15 08:36 | XMS_ITS | Clinical Summary ---
Author Organization [facility] Address [address] [place] [address] Care Team Providers Care Instructor Of Nursing Name Role Phone Constance Washington MD Primary Care Provider + Social History Tobacco Use Types Packs/Day Years Used Date Smoking Tobacco: Never Assessed Sex and Gender Information Value Date Recorded Sex Assigned at Not on file Legal Sex Male 2:38 PM EST Gender Identity Not on file Sexual Orientation Not on file Plan of Treatment Health Maintenance Due Date Last Done Comments Pneumococcal Vaccine: Pediat rics (0 to 5 Years) and At-Risk Patients (6 to 64 Years) (1 of 2 - PCV) 01/17/1974 Hepatitis B Vaccine (1 of 3 - 19+ 3-dose series) 01/17 Colorectal Cancer Screening: Annual FOBT 01/17/2017 Colorectal Cancer Screening: Colonoscopy 01/17/2017 Colorectal Cancer Screening: Sigmoidoscopy 01/17/2017 Influenza Vaccine (#1) [address] [place] [address] Care Teams Instructor Of Nursing Relationship Specialty Start Date End Date Constance Washington MD [address], [place] PCP - General Internal Medicine 12/09/24
--- OUTSIDE RECORDS SUMMARY | 2025-02-15 08:36 | XMS_ITS | Clinical Summary ---
Author Organization [facility] Address [address] [place] [address] Phone Care Team Providers Care Water Quality Specialist Name Role Phone Makr Singh MD Primary Care Provider +1- [phone] Allergies Active Allergy Reactions Criticality Noted Date Comments Aspirin Nausea And Vomiting 11/12/2022 Penicillins Hives 11/12/2022 Medications No known medications Active Problems No known active problems Medical History Medical History Date Comments Migraines Social History Tobacco Use Types Packs/Day Years Used Date Smoking Tobacco: Every Day Cigarettes Smokeless Tobacco: Never Tobacco Cessation:Ready to Q uit: Not Asked; Counseling Given: Not Answered Alcohol Use Standard Drinks/Week Comments Never 0 (1 standard drink = 0.6 oz pur e alcohol) Sex and Gender Information Value Date Recorded Sex Assigned at Male 10/12/2024 9:01 PM EST Legal Sex Male 1:54 PM EST Gender Identity Male 10/12/2024 9:01 PM EST Sexual Orientation Straight 10/12/2024 9: 01 PM EST Obstetrics History Last Filed Vital Signs Vital Sign Reading Time Taken Comments Blood Pressure 132/91 10/23/2024 3:37 PM EST Pulse 75 10/23/2024 3:37 PM EST Temperature 36.6 ??C (97.9 ??F) 10/23/2024 3:37 PM ES T Respiratory Rate 18 10/23/2024 3:37 PM EST Oxygen Saturation 99% 10/23/2024 3:37 PM EST Inhaled Oxygen Concentration - - Weight 95.3 kg (210 lb) 10/23/2024 1:34 PM EST Height 175.3 cm (5' 9 ) 10/23/2024 1:34 PM EST Body Mass Index 31.01 10/23/2024 1:34 PM EST Plan of Treatment Health Maintenance Due Date Last Done Comments DTaP,Tdap,and Td Vaccines (1 - Tdap) 01/17/1987 Hepatitis B Vaccines (1 of 3 - 19+ 3-dose series) 01/17/1987 Cholesterol Screening (Lipid Panel) 10/16/2022 Colorectal Cancer Screening: Colonoscopy 10/16/2022 Depression Screening 10/16/2022 HIV Screening 10/16/2022 Hepatitis C Screening 10/16/2022 Social Influencers of Health Screening 10/16/2022 COVID-19 Vaccine (3 - 2023-2 5 season) 2024 12/15/2023, 10/10/2021 Influenza Vaccine (#1) 2024 , 08/28/2022, 02/11/2022 Hypertension/CHF/CAD Annual BMP Blood Test 10/23/2025 10/23/2024 Pneumococcal Vaccine: 50+ Years Completed 08/28/2022 Pneumococcal Vaccine: Pediatrics (0 to 5 Years) and At-Risk Patients (6 to 64 Years) Completed 08/28/2022 Zoster Vaccines Completed 02/27/2023, 02/11/2022 HIB Vaccines Aged Out No longer eligi ble based on patient's age to complete this topic HPV Vaccines Aged Out No longer eligi ble based on patient's age to complete this topic Hepatitis A Vaccines Aged Out No long er eligible based on patient's age to complete this topic IPV Vaccines Aged Out No longer eligi ble based on patient's age to complete this topic MMR Vaccines Aged Out No longer eligi ble based on patient's age to complete this topic Meningococcal ACWY Vaccine Aged Out N o longer eligible based on patient's age to complete this topic Meningococcal B Vacine Aged Out No lo nger eligible based on patient's age to complete this topic RSV Immunization Patients Under 20 months Aged Out No longer eligible b ased on patient's age to complete this topic Varicella Vaccines Aged Out No longer eligible based on patient's age to complete this topic Procedures Procedure Name Priority Date/Time Associated Diagnosis Comments COMPREHENSIVE METABOLIC PANEL STAT 10/23/2024 2:18 PM EST from Last 3 Months or Most Recently Relevant to Health Maintenance Results * (ABNORMAL) Comprehensive metabolic panel (10/23/2024 2:18 PM EST) Sodium 139 133 - 145 mmol/L LAB CHEMISTRY METHOD 10/23/2024 2:47 PM [facility] Potassium 4.1 3.5 - 5.5 mmol/L LAB CHEMISTRY METHOD 10/23/2024 2:47 PM [facility] Chloride 108 96 - 110 mmol/L LAB CHEMISTRY METHOD 10/23/2024 2:47 PM [facility] CO2 26 21 - 32 mmol/L LAB CHEMISTRY METHOD 10/23/2024 2:47 PM [facility] Anion Gap 5 3 - 11 LAB CHEMISTRY METHOD 10/23/2024 2:47 PM [facility] Glucose 150(H) 70 - 100 mg/dL LAB CHEMISTRY METHOD 10/23/2024 2:47 PM [facility] BUN 10 5 - 25 mg/dL LAB CHEMISTRY METHOD 10/23/2024 2:47 PM [facility] Creatinine 1.02 0.70 - 1.30 mg/dL LAB CHEMISTRY METHOD 10/23/2024 2:47 PM [facility] eGFR 86 >=60 mL/min/1. 73m2 LAB CHEMISTRY METHOD 10/23/2024 2:47 PM [facility] Comment:Calculation based on the??Chronic Kidney Disease Epidemiology Collaboration (CKD-EPI) equation refit??without adjustment for race. BUN/Creatinine Ratio 9.8 LAB CHEMISTRY METHOD 10/23/2024 2:47 PM [facility] Calcium 9.2 8.5 - 10.5 mg/dL LAB CHEMISTRY METHOD 10/23/2024 2:47 PM [facility] AST (SGOT) 19 10 - 42 unit/L LAB CHEMISTRY METHOD 10/23/2024 2:47 PM [facility] ALT (SGPT) 25 10 - 60 unit/L LAB CHEMISTRY METHOD 10/23/2024 2:47 PM EST [facility] Alkaline Phosphatase 80 42 - 121 unit/L LAB CHEMISTRY METHOD 10/23/2024 2:47 PM [facility] Total Protein 7.4 6.0 - 8.0 g/dL LAB CHEMISTRY METHOD 10/23/2024 2:47 PM EST [facility] Albumin 4.0 3.2 - 5.0 g/dL LAB CHEMISTRY METHOD 10/23/2024 2:47 PM [facility] Total Bilirubin 0.3 0.0 - 1.4 mg/dL LAB CHEMISTRY METHOD 10/23/2024 2:47 PM [facility] Blood Venous blood specimen / Unknown Venipuncture / Unknown 10/23/2024 2:18 PM EST 10/23/2024 2:24 PM EST us Mohinder Barney DO LAB BLOOD ORDERABLES Final Res ult [facility] [address] [place] [address], from Last 3 Months or Most Recently Relevant to Health Maintenance Insurance [facility] [employer] Care Teams Water Quality Specialist Relationship Specialty Start Date End Date Mark Singh MD [address] [place] [phone] PCP - General Internal Medicine 10/12/24
--- NOTE | 2025-02-15 10:21 | P.OP_ITS ---
Operative Note Operative Note Date of Service: 02/15/25 Narrative: Procedure: Anterior exposure for Diskectomy and inter-body fusion L4-L5 and L5- S1 The patient was brought to the operating room, positioned on the table supine and general anesthesia was administered. The abdomen was clipped and then prepped and draped in the usual sterile fashion. After timeout was done, incision was made from the upper aspect of umbilicus to the infra-umbilical area just to the left of the midline 7 cm long. It was brought through subcutaneous tissue and the left anterior rectus sheath in line with the skin incision . The pre-peritoneal plane was entered, peritoneum was bluntly dissected off and iliac artery pulse was felt. Spermatic cord was protected. Self-retaining retractor with two deep blades was inserted and peritoneum protected with moist gauzes. Left internal iliac vein was identified and dissection was carried along the medial surface of the iliac vein up to the bifurcation. I took care not to transect any pre-sacral tissues but stay on the surface of the disk space. The middle sacral vessels were transected and L5-S1 disc space was bluntly and sharply dissected using bipolar cautery. The midline of the disk space was marked with C-arm image guide. Left common iliac artery was then dissected from lateral to medial, there was no branches,iliac vein was dissected and ileolumbar vein divided between the silk ties and clips. . L4-L5 disk space was dissected in midline was marked. Dr. Santos then proceeded with the diskectomy and fusion at L4-L5 and then L5- S1 level, which will be dictated separately by him. After this was done, hemostasis was checked and was excellent. Left ureter was examined prior to closure and was intact. There was good left external iliac artery pulse. Diluted 0.5% Marcaine and Lidocaine was injected in the fascia and subcutaneous tissue. The incision was irrigated and closed by layers using a 0 Maxone for the midline, 3-0 Vicryl for subcutaneous tissue and 4-0 Monocryl for skin. Exo-fin glue was then applied.
--- NOTE | 2025-02-15 12:02 | W.PM.OPN ---
Operative Note Operative Note Date of Service: 02/15/25 Narrative: Preoperative Diagnosis: 1.) Lumbar degenerative disc disease L4-5, L5-S1; lumbar radiculopathy and back pain Procedure: L4-5, L5-S1 discectomy, arthrodesis and implantation cages through an anterior lumbar approach (ALIF) ; anterior instrumentation L4-S1; posterior instrumented fusion L4-S1; allograft Indication for Surgery Lumbar degenerative disc disease Consent Informed Consent was obtained for this operation. I have explained the nature, purpose and benefits of the operation. I have discussed the risks and benefit of the operation including possible complications or adverse events with patient/family. Alternative(s) were discussed with the patient with their relative benefits and risks as well as the consequences of not accepting the operation were included in obtaining consent. Surgeon: COLIN SANDERS MD, PHD Procedure Assisted By: LALI DUNCAN MD and ROMEO Rivera Description of Procedure This 55-year-old male suffering from intractable low back pain. Imaging reviews lumbar degenerative disc disease at L4-5 and L5-S1. The patient was offered an anterior lumbar interbody fusion L4-5 and L5-S1 with anterior instrumentation and posterior instrumented fusion L4-S1. The procedure complications were explained. The patient was consented. The patient was brought to the operating room and endotracheally intubated. The patient was put in a supine position. Prep and drape was done followed by timeout. Dr. Duncan, co-surgeon, provided the access to the L4-5 and L5-S1 disc spaces through an anterior approach. He was assisted by physician itinerant teacher assistant who performed manual retraction. He will dictate the approach in a separate operative note. When the L4-5 and L5-S1 disc spaces were exposed I took over the procedure. An annulotomy was done at L4-5 followed by a partial discectomy. Sequential trial implants were inserted and advanced towards the posterior wall of the disc space. I completed the discectomy and prepare the endplates. Then a 38 x 28 x 13 height and 8 degree lordosis Astura cage filled with allograft was inserted into the disc space. A 13 mm plate attached to the cage for anterior instrumentation was a locked down with two nails going into the body of L4 and one nail going into L5. Then attention was turned to the L5-S1 disc space where a similar procedure was performed. The diskectomy was performed by preparation of the endplates. Then a 38 x 28 x 13 height and 15 degree lordosis Astura cage filled with allograft was inserted into the disc space. A 13 mm plate attached to the cage for anterior instrumentation was locked down with two nails going into the body of L5 and one nail going to the body of S1. The retractor was removed and hemostasis was done by Dr. Krishnan who closed the incision. This marked first part of the procedure. Accordingly the patient was turned prone on the Jose spine table and 2 C arms were installed for fluoroscopy. Prep and drape was done followed by a second timeout. 2 paramedian incisions were made lateral from the L4-S1 pedicles. The muscle fascia was opened and the musculature was split bluntly to expose the posterolateral gutter. The following steps were taken for pedicle screw placement: The pediguard tap was used to create a transpedicular trajectory into the vertebral body. A K wire was advanced. A specially designed instrument was advanced over the K wire to decorticate the posterolateral gutter. Pedicle screw was advanced after which the K wire was removed. Following the steps pedicle screws were placed in the bilateral L4, L5 and S1 pedicles. Total of 6 screws were placed with the following measurements: 6.5 by 45 mm. A 65 mm kody was tunneled bilaterally and locked down with locking caps. The tower of the right L5 screw broke off during locking of the kody. The screw was exchanged for a 7.5 x 45 mm and then the kody was locked down with locking caps without problems. The extension towers were removed. The posterolateral fusion was completed by laying down allograft in the posterolateral gutter. Hemostasis was done. The paramedian incisions were closed with an 0 Vicryl to fascia and 3-0 Vicryl to subdermal layer. Steri-Strips were used to approximate the incision. An OpSite with Tegaderm was used to cover the incisions. All sponge and needle counts were correct. The patient was extubated and transported in stable condition to recovery room. The physician itinerant teacher assistant was critical for the following aspects of surgery exposure for the ALIF, interpretation of x-rays, insertion of pedicle screws and closure of the paramedian incisions Anesthesia: General Estimated Blood Loss (ml): Less than 50 cc Duration of Surgery: 4 hours Complications: None Postoperative Plan: Admit to inpatient for clinical observation
[2025-02-15] MEDS: HYDROmorphone HCl 0.5 MG/0.5 ML SYRINGE IVPUSH (12:50)
[2025-02-15] MEDS: 0.9 % Sodium Chloride 1,000 ML 75 ML IVCONT (13:44)
--- NOTE | 2025-02-15 14:10 | PHA.MEDREC ---
Pharmacy Consult ? Medication Reconciliation Pharmacy has REVIEWED the medication reconciliation COMPLETED BY NURSING. 6 medications were inputted in error and 5 medications pt is on were omitted from the med rec. Utilized claims and spoke with daughter at bedside to determine current medications. Daughter listed Tiotropioum however there are no claims for this medication and was left off the med rec.
[2025-02-15] MEDS: oxyCODONE HCl Immed Release 5 MG TABLET 10 MG PO (16:50)
[2025-02-15] MEDS: Acetaminophen 1,000 MG/100 ML PIGGYBACK 400 MG IV ×2 (17:52→23:50)
[2025-02-15] MEDS: vancomycin HCL 1,000 MG in 0.9 % Sodium Chloride 250 ML 270 MG IV (18:29)
[2025-02-15] MEDS: Docusate Sodium 100 MG CAPSULE PO (19:56)
[2025-02-15] MEDS: HYDROmorphone HCl 1 MG/ML SYRINGE IVPUSH (19:56)
[2025-02-15] MEDS: Calcium Carbonate 750 MG TAB.CHEW PO (22:26)
[2025-02-16] VITALS (7 sets, daily range): BP systolic 133–156; BP diastolic 60–86; PULSE 70–91; RESP 16–19; TEMP 36.2–37.1; O2SAT 90–98
[2025-02-16] MEDS: oxyCODONE HCl Immed Release 5 MG TABLET 10 MG PO ×6 (00:01→23:57)
[2025-02-16] MEDS: 0.9 % Sodium Chloride 1,000 ML 75 ML IVCONT ×2 (03:14→17:25)
[2025-02-16] MEDS: HYDROmorphone HCl 1 MG/ML SYRINGE IVPUSH ×5 (03:14→21:35)
--- NOTE | 2025-02-16 05:02 | PC.NURSE ---
Moderate staining noted on dressing to lower back. Will reinforce if necessary. Ice packs applied for comfort. Patient is doing well, neuro signs WNL., pain relief managed adequately.
[2025-02-16] MEDS: Acetaminophen 1,000 MG/100 ML PIGGYBACK 400 MG IV ×2 (05:39→11:03)
[2025-02-16] MEDS: Docusate Sodium 100 MG CAPSULE PO ×2 (06:54→19:51)
--- NOTE | 2025-02-16 08:39 | HO.POSTANES ---
Post Anesthesia Evaluation Post Anesthesia Evaluation Date of Service: 02/16/25 Vital Signs: Vital Signs Temp Pulse Resp BP Pulse Ox O2 Del Method O2 Flow Rate 02/16/25 07:57 97.8 F 70 18 156/86 H 98 Nasal Cannula 2 02/16/25 03:22 97.2 F 77 16 133/60 97 Nasal Cannula 2 Anesthesia: General Mental Status: Awake Pain Control: Satisfactory Nausea/Vomiting: None Hydration: Adequate Anesthesia-Related Issues: No Anes. Related Issues
--- NOTE | 2025-02-16 09:17 | MHC.CM.PN ---
pt lives with dgter has a ride home is independent will not need services when dcd
--- NOTE | 2025-02-16 14:57 | PM.DS ---
DS: Providers Provider Date of Service: 02/17/25 Date of admission: 02/15/25 06:08 Date of discharge: 02/17/25 Primary care physician: Constance Washington MD DS: Summary Time Attestation Discharge Coordination Time (in mins): 12 Quality: Safe Use of Opioids Does Pt have an Active Cancer Diagnosis on the Problem List?: No Quality: Stroke Does the patient have a stroke diagnosis?: No Physical Exam Vital Signs: Vital Signs: Last Vital Signs Temp 98.0 F 02/16/25 14:00 Pulse 80 02/16/25 14:00 Resp 18 02/16/25 14:00 BP 138/83 02/16/25 14:00 Pulse Ox 96 02/16/25 14:00 O2 Del Method Room Air 02/16/25 14:00 O2 Flow Rate 2 02/16/25 07:57 BMI result Body Mass Index 32.7 Discharge Plan Discharge Anticipated Discharge Date/Time: 02/17/25 09:23 Patient Disposition: Home, Self-Care Discharge Diagnosis: s/p L4-S1 ALIF Referrals: Constance Washington MD [Primary Care Provider] - 1 Week Discharge Medications: New oxycodone 5 mg tablet See Rx Instructions .ROUTE .COMPLEX PRN (Reason: pain) Qty: 30 0RF Rx Instructions: Take 1-2 tablets by mouth every 4 hours. Partial Fill upon patient request. acetaminophen 500 mg tablet 1,000 mg PO Q8H PRN (Reason: pain (scale score 4-6)) Qty: 42 1RF docusate sodium 100 mg capsule 100 mg PO BID Qty: 14 1RF Continued risperidone 0.25 mg tablet 0.25 mg PO BID PRN (Reason: anxiety attack) diazepam 2 mg tablet 2 mg PO TID PRN (Reason: Anxiety) nicotine 21 mg/24 hr patch 24 hour 21 mg transdermal DAILY PRN (Reason: Withdrawal Symptoms) meloxicam 15 mg tablet 15 mg PO DAILY PRN (Reason: low back pain) amitriptyline 25 mg tablet 25 mg PO BEDTIME PRN (Reason: Insomnia) sertraline 50 mg tablet 50 mg PO DAILY cyclobenzaprine 10 mg tablet 10 mg PO BEDTIME sumatriptan succinate 25 mg tablet 25 mg PO DAILY MRX1 PRN (Reason: Migraine Headache) topiramate 100 mg tablet 100 mg PO BID nicotine (polacrilex) 2 mg Gum 4 mg buccal Q2H PRN (Reason: Nicotine Cravings) Qty: 60 0RF lidocaine [Lidocaine Pain Relief] 4 % Adhesive Patch,Medicated 2 patch transdermal DAILY Qty: 60 0RF Protocol: Apply to: Apply to: back albuterol sulfate [Ventolin HFA] 90 mcg/actuation HFA aerosol inhaler 2 puff inhalation Q6H PRN (Reason: wheezing) Qty: 1 0RF Discharge Orders: Discharge Order (Routine); Ordered 02/17/25 Ordered By: Tank Montes Diet: Advance to usual diet Activity on Discharge: As tolerated Stand Alone Forms: Patient Portal Discharge page Print Language: Bulgarian Activity Restrictions/Additional Instructions: After your spinal surgery we ask you to observe the following restrictions/guidelines: Activity: It is normal to feel some discomfort as you increase your activity, but that will improve with time. We ask you avoid heavy lifting or acitivities that cause pain. As a general rule, 8lbs is a safe limit for lifting right after surgery. Walk as much as you feel comfortable but not to exhaustion. You will feel extra tired the first few days after surgery. Stay well hydrated. It is OK to walk up and down stairs You may return to driving when you are off narcotics (such as vicodin, oxycodone, dilaudid, etc), and you are back to normal functional capacity. If you have any concerns please check with office before driving. Return to work is specific to each patient and each surgery, so please speak with your doctor/PA at first follow up. Please bring paperwork such as FMLA at that time if you need it filled out. Medications: We recommend you take 1,000mg Tylenol every 8 hours for the first few weeks after surgery, if you do not have any liver issues and can tolerate this medication. Do not exceed 4,000mg daily. We will give you a short supply of narcotics after surgery (usually one weeks worth). If you need more please call the office but do not use more than prescribed. You will need to give our office 48 hours notice if you need narcotics refilled and we do not fill narcotics on weekends or evenings. If you are on a narcotic, it is a good idea to take a stool softener such as colace or senna to avoid constipation If you take blood thinner such as aspirin, Plavix, Coumadin, Effient, Eliquis etc for conditions such as Afib, DVT, Pulmonary embolus, coronary disease, stents etc please speak with your surgeon about specific details as to when you can resume these medications. You can resume NSAIDs on post op day 1 (eg: Motrin, Naproxen, etc). Follow up: Please call the office, , after surgery to arrange a 3 week follow up for wound check. Wound Care: You may remove your dressing on the first day after surgery. ?You may ?leave open to air. Please do not remove the steri strips underneath. they will fall off on their own in one week. IT IS NORMAL FOR THE WOUND TO OOZE OR BE BLOODY FOR A FEW DAYS AFTER SURGERY. ?IF THIS HAPPENS JUST PLACE NEW DRESSING OVER IT TO AVOID STAINING CLOTHES. You may shower on post op day # 1 We ask that you do not let the water soak the wound. If it does get wet, just towel dry lightly. Please do not scrub your incision or place any type of chemical/ointment on the wound. No tub baths, pools or jacuzzis for one month. If you have any leaking or redness from your wound, or fevers, please call the office. Care Plan Goals: Return to normal activity as tolerated Health Concerns: None Plan of Treatment: Follow-up in clinic in 2-3 weeks Assessment: Procedure: L4-5, L5-S1 NATALIA Sandoval is a pleasant 55 year old male who underwent L4-S1 ALIF Friday02/15/[address] Santos. He was initially evaluated in clinic for low back pain. He reports that he has been up, out of bed, worked with PT, and is tolerating his current diet. He has ambulated with assistance to the bathroom to void. He reports that the pain is much better today in his low back and near the anterior incision site. He has been utilizing the prescribed pain medications including Tylenol, muscle relaxers, Dilaudid, and oxycodone, gabapentin. No new neurologic deficits. His anterior incision site is closed and well healing with the Steri-Strips overlying. His posterior dressings have minimal staining and no signs of hematoma development. Abdomen soft, non-tender to palpation this morning. 55 year old male who underwent L4-S1 ALIF Friday with Dr. Santos. He has been progressing normally and his pain is better controlled today. I will place a discharge order and send in Tylenol, Colace, and Oxycodone to [facility]. His daughter has been visiting him in the hospital and will be caring for him when he returns home. This plan was relayed to the attending neurosurgeon Dr. Santos. Tank Santos MD,PhD [facility] Patient Instructions: Lumbar Spinal Fusion (DC)
--- NOTE | 2025-02-16 14:58 | HO.NEUROPN_ITS ---
Neurosurgery Operative Note Date of Service: 02/16/25 Narrative: Procedure: L4-5, L5-S1 ARIF Jaime is a pleasant 55 year old male who underwent L4-S1 ALIF yesterday with Dr. Santos. He was initially evaluated in clinic for low back pain. He reports that he has been up, out of bed, worked with PT, and is tolerating his current diet. He has ambulated with assistance to the bathroom to void. He reports that he still has quite a bit of low back pain and pain near the anterior incision site. He is otherwise doing well. He has been utilizing the prescribed pain medications including Tylenol, muscle relaxers, Dilaudid, and oxycodone. No new neurologic deficits. The patient has full strength in his bilateral lower extremities, but does elicit some pain to full strength testing. His anterior incision site is closed and well healing with the Steri-Strips overlying. His posterior dressings have minimal staining and no signs of hematoma development. Abdomen soft, but slightly tender to palpation. 55 year old male who underwent L4-S1 ALIF yesterday with Dr. Santos. He has been progressing normally, side from his pain control. He has struggled to obtain adequate pain control since surgery. Unfortunately, he has an anaphylaxis reaction to NSAIDs so Toradol is not an option for him. For the time being I scheduled his methocarbamol 750 mg so it can be given regularly, ordered gabapentin 300 mg 3 times daily, and changed his IV Tylenol to 975 mg po q.i.d. I will come in tomorrow before clinic and evaluate him again, if his pain is better controlled by tomorrow he will be discharged in the morning. This plan was relayed to the attending neurosurgeon Dr. Santos. Tank Santos MD,PhD [facility]
[2025-02-16] MEDS: Acetaminophen 325 MG TABLET 975 MG PO ×2 (17:24→23:56)
[2025-02-16] MEDS: methocarbamoL 750 MG TABLET PO (19:49)
[2025-02-16] MEDS: diazePAM 2 MG TABLET PO (19:49)
[2025-02-16] MEDS: Gabapentin 300 MG CAPSULE PO (19:50)
[2025-02-17] MEDS: HYDROmorphone HCl 1 MG/ML SYRINGE IVPUSH ×2 (00:32→05:34)
[2025-02-17] MEDS: oxyCODONE HCl Immed Release 5 MG TABLET 10 MG PO ×2 (04:02→11:09)
[2025-02-17 05:37] VITALS: BP 147/78; PULSE 85; RESP 17; TEMP 36.9; O2SAT 91
[2025-02-17] MEDS: 0.9 % Sodium Chloride 1,000 ML 75 ML IVCONT (05:38)
[2025-02-17] MEDS: Calcium Carbonate 750 MG TAB.CHEW PO (05:41)
[2025-02-17] MEDS: Acetaminophen 325 MG TABLET 975 MG PO (06:03)
[2025-02-17] MEDS: Gabapentin 300 MG CAPSULE PO (08:53)
[2025-02-17] MEDS: Docusate Sodium 100 MG CAPSULE PO (08:53)
[2025-02-17] MEDS: methocarbamoL 750 MG TABLET PO (08:53)
--- NOTE | 2025-02-17 09:50 | HO.NEURO.PN ---
Neurosurgery Operative Note Date of Service: 02/17/25 Narrative: Procedure: L4-5, L5-S1 NATALIA Sandoval is a pleasant 55 year old male who underwent L4-S1 ALIF Friday02/15/[address] Santos. He was initially evaluated in clinic for low back pain. He reports that he has been up, out of bed, worked with PT, and is tolerating his current diet. He has ambulated with assistance to the bathroom to void. He reports that the pain is much better today in his low back and near the anterior incision site. He has been utilizing the prescribed pain medications including Tylenol, muscle relaxers, Dilaudid, and oxycodone, gabapentin. No new neurologic deficits. His anterior incision site is closed and well healing with the Steri-Strips overlying. His posterior dressings have minimal staining and no signs of hematoma development. Abdomen soft, non-tender to palpation this morning. 55 year old male who underwent L4-S1 ALIF Friday with Dr. Santos. He has been progressing normally and his pain is better controlled today. I will place a discharge order and send in Tylenol, Colace, and Oxycodone to [facility]. His daughter has been visiting him in the hospital and will be caring for him when he returns home. This plan was relayed to the attending neurosurgeon Dr. Santos. Tank Santos MD,PhD [facility]
--- NOTE | 2025-02-17 11:12 | P.F2F_ITS ---
Service Date Service Date: 02/17/25 Encounter Date of encounter: 02/17/25 Reasons for Services Signs and symptoms assessed: s/p L4-S1 ALIF Reason for jail: postoperative assessment and/or care, medication management and medication treatment Reason for physical therapy: home safety and mobility, gait/transfer training and ADL training Homebound: Leaving the home is medically contraindicated at this time without the asist of a device and/or another person due th the listed conditions above and below. Reason homebound: unsteady gait / fall risk, leg weakness, pain with ambulation and weakness related to hospital stay Certification: Based on the above findings, I certify that this patient is confined to the home and needs intermittent jail care, physical therapy and/or speech therapy, or continues to need occupational therapy. The patient is under my care, and I have initiated the establishment of the plan of care. The patient will be followed by a physician who will periodically review the plan of care. Time Spent With Patient Time: Total time managing care of this patient today __12__ minutes.
--- NOTE | 2025-02-17 11:18 | MHC.CM.PN ---
DP: PT HAS BEEN MEDICALLY CLEARED FOR DC HOME WITH NEW [facility] FOR PHYSICAL THERAPY WITH [facility]. PT'S FAMILY WILL TRANSPORT
== END 2025-02-17 11:26 | disposition home health service (06) | DRG 304 ==
LOC: HO.SSSA 08:21 → HO.S3 12:34
PROVIDERS: Neurological Surgery; Nurse Practitioner; Admitting Provider Physician Assistant; PCP Internal Medicine; Visit Provider Physician Assistant
PROC: 0SG00A0 Fusion of Lumbar Vertebral Joint with Interbody Fusion Device, Anterior Approach, Anterior Column, Open Approach (ICD-10-PCS; principal; 2025-02-15 07:30)
DX: M51.16 Intervertebral disc disorders with radiculopathy, lumbar region (principal); F17.210 Nicotine dependence, cigarettes, uncomplicated; Z71.6 Tobacco abuse counseling
CPT/HCPCS: 36415; 74018; 80048; 85027; 86850; 86900; 86901; 93005; 97116; 97162; 97530; C1713; C1889; J0131; J1100; J1171; J1885; J2003; J2250; J2371; J2405; J2704; J3010; J3370; J3371; L8699

== ENCOUNTER 2025-02-15 06:08 | Outpatient (BNV) | payer OTHER, SELFPAY | END 2025-02-15 09:32 | PROVIDERS: Admitting Provider Physician Assistant; Visit Provider Radiology Diagnostic Radiology | DX: M43.26 Fusion of spine, lumbar region (principal) | CPT/HCPCS: 74018 ==

== ENCOUNTER → 2025-02-15 06:08 | Outpatient (BNV) | payer OTHER, SELFPAY | PROVIDERS: Admitting Provider Physician Assistant; Visit Provider Surgery | DX: M51.16 Intervertebral disc disorders with radiculopathy, lumbar region (principal) | CPT/HCPCS: 20930; 22558; 22585; 22612; 22614; 22840; 22845; 22853; 99024; 99499; G0180 ==

== ENCOUNTER 2025-03-11 14:49 | Outpatient (AMB) | payer OTHER, SELFPAY ==
--- NOTE | 2025-03-11 14:55 | A.SPINEOV_ITS ---
Intake Visit Reasons: 1st post op Intake Note: Mr. Moe Márquez is here today for his 1st post op. Voltmeter Operator Required: Yes Voltmeter Operator Name: Karissa Rosa (Daughter) Allergies aspirin Adverse Reaction (Verified 03/11/25 15:35) Anaphylaxis Penicillins Adverse Reaction (Verified 03/11/25 15:35) Anaphylaxis Assessment & Plan Assessment & Plan (1) Lumbar degenerative disc disease: Code(s): M51.369 - Other intervertebral disc degeneration, lumbar region without mention of lumbar back pain or lower extremity pain Category: Medical Plan Mr Moe Márquez is here in follow up after his L4-5, L5-S1 anterior lumbar interbody fusion. He has been doing okay at home. He does get pain going down the back of his legs when he is standing and walking. He has been using a walker. Does not report any new weakness, numbness etc.. He is tolerating a diet okay. His incisions anteriorly and in the lumbar region are well healed. We discussed activity guidelines, restrictions and expectations after lumbar surgery. I refilled his oxycodone. I would like to see him back in 6 weeks with a set of x-rays. Roger Santos MD, PhD [facility] Orders: Orders XR lumbar spine 4V min Today M51.369 - Other intervertebral disc degeneration, lumbar region without mention of lumbar back pain or lower extremity pain Coding Level of Care Code Global (78564) Diagnoses Lumbar degenerative disc disease M51.369
--- OUTSIDE RECORDS SUMMARY | 2025-03-11 15:33 | XMS_ITS | Clinical Summary ---
Author Organization [facility] Address [address] [place] [address] Phone Care Team Providers Care Wool Handler Name Role Phone Mark Singh MD Primary Care Provider [phone]- [phone] Allergies Active Allergy Reactions Criticality Noted Date [...] 5 season) 2024 12/15/2023, 10/10/2021 Influenza Vaccine (Season Ended) 2025 10/22/2023, 08/28/2022, 02/11/2022 Hypertension/CHF/CAD Annual BMP Blood Test [...] age to complete this topic Meningococcal B Vaccine Aged Out No l onger eligible based on patient's age to complete [...] mmol/L LAB CHEMISTRY METHOD 10/23/2024 2:47 PM [facility] Potassium 4.1 3.5 - 5.5 mmol/L LAB CHEMISTRY METHOD 10/23/2024 2:47 PM [facility] Chloride 108 96 - 110 mmol/L LAB CHEMISTRY METHOD 10/23/2024 2:47 PM [facility] CO2 26 21 - 32 mmol/L LAB CHEMISTRY METHOD 10/23/2024 2:47 PM [facility] Anion Gap 5 3 - 11 LAB CHEMISTRY METHOD 10/23/2024 2:47 PM [facility] Glucose 150(H) 70 - 100 mg/dL LAB CHEMISTRY METHOD 10/23/2024 2:47 PM [facility] BUN 10 5 - 25 mg/dL LAB CHEMISTRY METHOD 10/23/2024 2:47 PM [facility] Creatinine 1.02 0.70 - 1.30 mg/dL LAB CHEMISTRY METHOD 10/23/2024 2:47 PM [facility] eGFR 86 >=60 mL/min/1. 73m2 LAB CHEMISTRY METHOD 10/23/2024 2:47 PM [facility] Comment:Calculation based on the??Chronic Kidney Disease Epidemiology Collaboration (CKD-EPI) equation refit??without adjustment for race. BUN/Creatinine Ratio 9.8 LAB CHEMISTRY METHOD 10/23/2024 2:47 PM [facility] Calcium 9.2 8.5 - 10.5 mg/dL LAB CHEMISTRY METHOD 10/23/2024 2:47 PM [facility] AST (SGOT) 19 10 - 42 unit/L LAB CHEMISTRY METHOD 10/23/2024 2:47 PM [facility] ALT (SGPT) 25 10 - 60 unit/L LAB CHEMISTRY METHOD 10/23/2024 2:47 PM EST [facility] Alkaline Phosphatase 80 42 - 121 unit/L LAB CHEMISTRY METHOD 10/23/2024 2:47 PM EST [facility] Total Protein 7.4 6.0 - 8.0 g/dL LAB CHEMISTRY METHOD 10/23/2024 2:47 PM EST [facility] Albumin 4.0 3.2 - 5.0 g/dL LAB CHEMISTRY METHOD 10/23/2024 2:47 PM EST [facility] Total Bilirubin 0.3 0.0 - 1.4 mg/dL LAB CHEMISTRY METHOD 10/23/2024 2:47 PM [facility] Blood Venous blood specimen / Unknown Venipuncture / Unknown 10/23/2024 2:18 PM EST 10/23/2024 2:24 PM EST us Mohinder Barney DO LAB BLOOD ORDERABLES Final Res ult [facility] [address] [place] [address], from Last 3 Months or Most Recently Relevant to Health Maintenance Insurance [facility] MEDICAID ADVANTAGE Care Teams Wool Handler Relationship Specialty Start Date End Date Mark Singh MD [address] [place] [address] [phone] PCP - General Internal Medicine 10/12/24
== END 2025-03-11 15:50 | disposition home or self-care (01) ==
LOC: HO.HNS 14:50
PROVIDERS: Visit Provider Physician Assistant
DX: M51.369 Other intervertebral disc degeneration, lumbar region without mention of lumbar back pain or lower extremity pain (principal)
CPT/HCPCS: 99024

== ENCOUNTER 2025-03-11 14:49 | Outpatient (REF) | payer OTHER, SELFPAY ==
--- OUTSIDE RECORDS SUMMARY | 2025-03-11 16:09 | XMS_ITS | Clinical Summary ---
Author Organization [facility] Address [address] [place] [address] Phone Care Team Providers Care Yardage Caller Name Role Phone Mark Singh MD Primary Care Provider [phone]- [phone] Allergies Active Allergy Reactions Criticality Noted Date [...] mmol/L LAB CHEMISTRY METHOD 10/23/2024 2:[address] [facility] Potassium 4.1 3.5 - 5.5 mmol/L LAB CHEMISTRY METHOD 10/23/2024 2:[address] [facility] Chloride 108 96 - 110 mmol/L LAB CHEMISTRY METHOD 10/23/2024 2:[address] [facility] CO2 26 21 - 32 mmol/L LAB CHEMISTRY METHOD 10/23/2024 2:[address] [facility] Anion Gap 5 3 - 11 LAB CHEMISTRY METHOD 10/23/2024 2:[address] [facility] Glucose 150(H) 70 - 100 mg/dL LAB CHEMISTRY METHOD 10/23/2024 2:[address] [facility] BUN 10 5 - 25 mg/dL LAB CHEMISTRY METHOD 10/23/2024 2:[address] [facility] Creatinine 1.02 0.70 - 1.30 mg/dL LAB CHEMISTRY METHOD 10/23/2024 2:[address] [facility] eGFR 86 >=60 mL/min/1. 73m2 LAB CHEMISTRY METHOD 10/23/2024 2:[address] [facility] Comment:Calculation based on the??Chronic Kidney Disease Epidemiology Collaboration (CKD-EPI) equation refit??without adjustment for race. BUN/Creatinine Ratio 9.8 LAB CHEMISTRY METHOD 10/23/2024 2:[address] [facility] Calcium 9.2 8.5 - 10.5 mg/dL LAB CHEMISTRY METHOD 10/23/2024 2:[address] [facility] AST (SGOT) 19 10 - 42 unit/L LAB CHEMISTRY METHOD 10/23/2024 2:[address] [facility] ALT (SGPT) 25 10 - 60 unit/L LAB CHEMISTRY METHOD 10/23/2024 2:47 PM EST [facility] Alkaline Phosphatase 80 42 - 121 unit/L LAB CHEMISTRY METHOD 10/23/2024 2:47 PM EST [facility] Total Protein 7.4 6.0 - 8.0 g/dL LAB CHEMISTRY METHOD 10/23/2024 2:47 PM EST [facility] Albumin 4.0 3.2 - 5.0 g/dL LAB CHEMISTRY METHOD 10/23/2024 2:47 PM EST [facility] Total Bilirubin 0.3 0.0 - 1.4 mg/dL LAB CHEMISTRY METHOD 10/23/2024 2:[address] [facility] Blood Venous blood specimen / Unknown Venipuncture / Unknown 10/23/2024 2:18 PM EST 10/23/2024 2:24 PM EST us Mohinder Barney DO LAB BLOOD ORDERABLES Final Res ult [facility] [address] [place] [address], from Last 3 Months or Most Recently Relevant to Health Maintenance Insurance [facility] MEDICAID ADVANTAGE Care Teams Yardage Caller Relationship Specialty Start Date End Date Mark Singh MD [address] [place] [address] [phone] PCP - General Internal Medicine 10/12/24
== END 2025-03-11 14:50 | disposition home or self-care (01) ==
LOC: HO.HOSX 14:49
PROVIDERS: Visit Provider Physician Assistant
DX: Z98.1 Arthrodesis status (principal)
CPT/HCPCS: 99212

== ENCOUNTER 2025-04-21 11:20 | Outpatient (REF) | payer OTHER, SELFPAY ==
--- NOTE | ~2025-04-21 | XR_ITS ---
Exam: Three-view L-spine TECHNIQUE: AP, and lateral: Flexion, neutral, and extension view x-rays of the lumbar spine. Indication: M51.369 - Other intervertebral disc degeneration, lumbar region Prior: November 15, 2024 FINDINGS: There are 5 nonrib-bearing lumbar segments. T12-L1: There is mild disc space narrowing without instability. L1-2: There is stable moderate disc space narrowing without instability. L2-3: There is moderate disc space narrowing, grade 1 rotation, atherosclerosis, and osteophytes. Stable and unchanged. L3-4: There is subtle retrolisthesis without instability. There is moderate disc space narrowing. Unchanged. L4-S1: Posterior pedicle screws and rods and interbody spacers are new since the prior. Hardware is intact. There is no abnormal lucency at bone metal interfaces. L4-5: Interbody spaces been restored. There is subtle retrolisthesis without instability. L5-S1: Interbody space has been restored. There is no instability. XR/XR lumbar spine 4V min IMPRESSION: L4-S1: New PLIF with posterior pedicle screws and rods and interbody spacers. No sign of instability with flexion and extension. Multilevel degenerative disc disease in the lumbar spine as detailed above. Electronically signed by: Aidan Yanes MD 04/21/2025 12:59 PM EDT
--- OUTSIDE RECORDS SUMMARY | 2025-04-22 12:08 | XMS_ITS | Clinical Summary ---
Author Organization [facility] Address [address] [place] [address] Phone Care Team Providers Care Outbound Telemarketing Representative Name Role Phone Mark Singh MD Primary Care Provider [phone]- [phone] Allergies Active Allergy Reactions Criticality Noted Date [...] LAB CHEMISTRY METHOD 10/23/2024 2:47 PM EST [facility] Alkaline Phosphatase 80 42 - 121 unit/L LAB CHEMISTRY METHOD 10/23/2024 2:47 PM EST [facility] Total Protein 7.4 6.0 - 8.0 g/dL LAB CHEMISTRY METHOD 10/23/2024 2:47 PM EST [facility] Albumin 4.0 3.2 - 5.0 g/dL LAB CHEMISTRY METHOD 10/23/2024 2:47 PM EST [facility] Total Bilirubin 0.3 0.0 - 1.4 mg/dL LAB CHEMISTRY METHOD 10/23/2024 2:47 PM [facility] Blood Venous blood specimen / Unknown Venipuncture / Unknown 10/23/2024 2:18 PM EST 10/23/2024 2:24 PM EST us Mohinder Barney DO LAB BLOOD ORDERABLES Final Res ult [facility] [address] [place] [address], from Last 3 Months or Most Recently Relevant to Health Maintenance Insurance [facility] MEDICAID ADVANTAGE Care Teams Outbound Telemarketing Representative Relationship Specialty Start Date End Date Mark Singh MD [address] [place] [address] [phone] PCP - General Internal Medicine 10/12/24
== END 2025-04-21 11:21 | disposition home or self-care (01) ==
LOC: HO.HOSX 11:20
PROVIDERS: Visit Provider Physician Assistant
DX: M51.369 Other intervertebral disc degeneration, lumbar region without mention of lumbar back pain or lower extremity pain (principal); M54.9 Dorsalgia, unspecified
CPT/HCPCS: 72110; 99212

== ENCOUNTER 2025-04-21 11:22 | Outpatient (AMB) | payer OTHER, SELFPAY ==
--- NOTE | 2025-04-21 11:42 | A.SPINEOV_ITS ---
Intake Visit Reasons: 2nd post op with xrays Intake Note: Mr. Moe Márquez is here today for his 2nd post op with xrays. Sales Promotion Representative Required: Yes Sales Promotion Representative Name: Fabby (Daughter) Allergies aspirin Adverse Reaction (Verified 03/11/25 15:35) Anaphylaxis Penicillins Adverse Reaction (Verified 03/11/25 15:35) Anaphylaxis Assessment & Plan Assessment & Plan (1) Back pain: Code(s): M54.9 - Dorsalgia, unspecified Category: Medical Qualifiers: Back pain location: low back pain Plan: Procedure: L4-S1 ALIF Jaime is a pleasant 55-year-old male who comes in today for his 2nd postoperative appointment after having an L4-S1 ALIF completed by Dr. Santos. He reports that his low back pain has improved quite a bit, but he still get the occasional twinges of pinching pain in his left lower back. This primarily occurs with excessive movement or ambulation. He does feel that overall his symptoms are much better than they were prior to surgery. We discussed the postoperative healing course, and I answered all questions that he had. I reviewed his x-ray imaging, which showed stable placement of his surgical instrumentation with no notable changes from fluoroscopy. On the flexion/neutral views it almost appeared as though a locking cap had came off on the right L4 screw, however when comparing to the extension and AP views, I do not believe this is the case. I think the tulip head of the screw is just oriented at an angle. No new neurological deficits. The patient ambulates well and rises from a seated position without difficulty. He ambulates with the assistance of a cane. His anterior and posterior incision sites appear closed and well healed. I would like Jaime to be sent for a course of physical therapy to help work out some of this residual musculoskeletal pain that it sounds like he has. I will also order a CT scan to be done at 10 months out from surgery. I would like him to follow up with us again 1 year out from surgery. Tank Santos MD,PhD [facility] Orders: Orders PT Evaluation and Treatment Today M54.9 - Dorsalgia, unspecified CT lumbar spine wo IV con Today Z98.1 - Arthrodesis status XR lumbar spine 4V min Today M51.369 - Other intervertebral disc degeneration, lumbar region without mention of lumbar back pain or lower extremity pain Coding Level of Care Code Global (22326) Diagnoses Back pain M54.9 Back pain location: low back pain
--- OUTSIDE RECORDS SUMMARY | 2025-04-21 13:35 | XMS_ITS | Clinical Summary ---
Author Organization [facility] Address [address] [place] [address] Phone Care Team Providers Care Fabric Designer Name Role Phone Mark Singh MD Primary Care Provider [phone]- [phone] Allergies Active Allergy Reactions Criticality Noted Date [...] mmol/L LAB CHEMISTRY METHOD 10/23/2024 2:47 PM [facility] Potassium 4.1 3.5 - 5.5 mmol/L LAB CHEMISTRY METHOD 10/23/2024 2:47 PM [facility] Chloride 108 96 - 110 mmol/L LAB CHEMISTRY METHOD 10/23/2024 2:47 PM [facility] CO2 26 21 - 32 mmol/L LAB CHEMISTRY METHOD 10/23/2024 2:47 PM [facility] Anion Gap 5 3 - 11 LAB CHEMISTRY METHOD 10/23/2024 2:47 PM [facility] Glucose 150(H) 70 - 100 mg/dL LAB CHEMISTRY METHOD 10/23/2024 2:47 PM [facility] BUN 10 5 - 25 mg/dL LAB CHEMISTRY METHOD 10/23/2024 2:47 PM [facility] Creatinine 1.02 0.70 - 1.30 mg/dL LAB CHEMISTRY METHOD 10/23/2024 2:47 PM [facility] eGFR 86 >=60 mL/min/1. 73m2 LAB CHEMISTRY METHOD 10/23/2024 2:47 PM [facility] Comment:Calculation based on the??Chronic Kidney Disease Epidemiology Collaboration (CKD-EPI) equation refit??without adjustment for race. BUN/Creatinine Ratio 9.8 LAB CHEMISTRY METHOD 10/23/2024 2:47 PM [facility] Calcium 9.2 8.5 - 10.5 mg/dL LAB CHEMISTRY METHOD 10/23/2024 2:47 PM [facility] AST (SGOT) 19 10 - 42 unit/L LAB CHEMISTRY METHOD 10/23/2024 2:47 PM [facility] ALT (SGPT) 25 10 - 60 unit/L LAB CHEMISTRY METHOD 10/23/2024 2:47 PM EST [facility] Alkaline Phosphatase 80 42 - 121 unit/L LAB CHEMISTRY METHOD 10/23/2024 2:47 PM EST [facility] Total Protein 7.4 6.0 - 8.0 g/dL LAB CHEMISTRY METHOD 10/23/2024 2:47 PM EST [facility] Albumin 4.0 3.2 - 5.0 g/dL LAB CHEMISTRY METHOD 10/23/2024 2:47 PM EST [facility] Total Bilirubin 0.3 0.0 - 1.4 mg/dL LAB CHEMISTRY METHOD 10/23/2024 2:47 PM [facility] Blood Venous blood specimen / Unknown Venipuncture / Unknown 10/23/2024 2:18 PM EST 10/23/2024 2:24 PM EST us Mohinder Barney DO LAB BLOOD ORDERABLES Final Res ult [facility] [address] [place] [address], from Last 3 Months or Most Recently Relevant to Health Maintenance Insurance [facility] MEDICAID ADVANTAGE Care Teams Fabric Designer Relationship Specialty Start Date End Date Mark Singh MD [address] [place] [address] [phone] PCP - General Internal Medicine 10/12/24
== END 2025-04-21 11:59 | disposition home or self-care (01) ==
LOC: HO.HNS 11:23
PROVIDERS: Visit Provider Physician Assistant
DX: M54.9 Dorsalgia, unspecified (principal)
CPT/HCPCS: 99024

== ENCOUNTER → 2025-04-21 11:33 | Outpatient (BNV) | payer OTHER, SELFPAY | PROVIDERS: Visit Provider Radiology Diagnostic Radiology | DX: M51.369 Other intervertebral disc degeneration, lumbar region without mention of lumbar back pain or lower extremity pain (principal) | CPT/HCPCS: 72110 ==